=== PATIENT | female | born 1975 | race Caucasian/White ===

== ENCOUNTER 2023-12-08 16:39 | Emergency (ER) | payer OTHER, SELFPAY ==
--- NOTE | ~2023-12-08 | CT_ITS ---
EXAMINATION: CT abdomen pelvis w con DATE: 12/08/2023 18:03 INDICATION: abd pain TECHNIQUE: Computed tomography (CT) of the abdomen and pelvis was performed with 100 mL Omnipaque-350 intravenous contrast. Automated exposure control and iterative reconstruction technique were employe d. The dose-length product was 1021.28 mGy-cm. COMPARISON: None. FINDINGS: Lower thorax: Bilateral basilar atelectasis/scar. Small left pleural effusion. Liver: Enlarged. Biliary/Gallbladder: Distended gallbladder. Gallbladder wall thickening proximally. Large gallstone i n the fundus. Possible 12 mm gallbladder stone at the gallbladder neck. No bile duct dilation. Pancreas: Mild fatty atrophy Spleen: Normal. Adrenals:No mass. Kidneys: No suspicious mass, obstructing stone, or hydronephrosis. GI tract: No small or large bowel dilation. Normal appendix. Mesentery/Peritoneum: Moderate volume simple ascites. Stranding and nodular soft tissue densities in the anterior mesenteric fat. Retroperitoneum: No mass. Atherosclerotic abdominal aortic and/or arterial calcifications. Pelvis: The urinary bladder is mostly empty. Large bulky heterogeneously enhancing uterus. Normal shantel ateral ovaries. Soft Tissues: Soft tissues and body wall unremarkable. Bones: No acute osseous finding. IMPRESSION: Hepatomegaly. Gallbladder hydrops with proximal wall thickening and a potential gallbladder neck stone, correlate f or findings of right upper quadrant pain and with biliary labs. Large, bulky uterus with omental cake and moderate ascites. These findings are concerning for endomet rial, uterine, or other tumor with metastases. Consider MRI of the pelvis and gynecology/gynecology-o ncology referral. Reviewed, dictated and finalized at location K. IMPRESSION: Hepatomegaly. Gallbladder hydrops with proximal wall thickening and a potential gallbladder n luci stone, correlate for findings of right upper quadrant pain and with biliary labs. Large, bulky uterus with omental cake and moderate ascites. These findings are concerning for endometrial, uterine, or other tumor with metastases. Consider M RI of the pelvis and gynecology/gynecology-oncology referral.
[2023-12-08 16:58] VITALS: BP 148/93; PULSE 139; RESP 30; TEMP 37.4; O2SAT 95
--- NOTE | 2023-12-08 17:15 | ED.ABDPAIN ---
HPI - Abdominal Pain General Chief Complaint: Abdominal Pain Stated Complaint: abdominal pain Time Seen by Provider: 12/08/23 16:52 History of Present Illness HPI narrative: 48 YEARS OLD WHITE FEMALE DROVE HERSELF TO THE EMERGENCY ROOM COMPLAINING OF BLOATING, GASSY LIKE FEELING AND ABDOMINAL DISTENTION FOR THE LAST 2 WEEKS FEELING TIGHT ALL OVER THE ABDOMEN. SHE DENIES ANY FEVER, CHILLS, NAUSEA, VOMITING, DIARRHEA, CONSTIPATION. PATIENT REPORTED THAT FEELING GET WORSE WITH EATING, MAYBE BETTER WITH HEATING PAD. LAST MINUTE WITH MINUTES FOR CYCLE 3 WEEKS AGO, PATIENT ON CONTROL, NEVER BEEN , ADOPTED, OBGYN AT [facility]. PATIENT DOES NOT SMOKE OR DRINK OR USE DRUGS, HISTORY OF HYPERLIPIDEMIA DENIED ANY HISTORY OF ABDOMINAL SURGERY Related Data Allergies Allergy/AdvReac Type Severity Reaction Status Date / Time bee venom protein (honey bee) Allergy Hives Verified 12/08/23 17:18 Penicillins Allergy Hives Verified 12/08/23 17:18 Sulfa (Sulfonamide Allergy Hives Verified 12/08/23 17:18 Antibiotics) Review of Systems Review of Systems: All systems reviewed & are unremarkable except as noted in HPI and below Exam Narrative: GENERAL APPEARANCE: WELL-DEVELOPED, WELL-NOURISHED SKIN: NORMAL COLOR HEAD: NORMOCEPHALIC, NONTRAUMATIC EYES: CLEAR CONJUNCTIVA ENT: OROPHARYNX NORMAL, EARS NORMAL, NOSE NORMAL NECK: SUPPLE, NONTENDER CHEST AND RESPIRATORY: AIRWAY PATENT, NO RESPIRATORY DISTRESS, NO ACCESSORY MUSCLE USE HEART: REGULAR RATE/RHYTHM ABDOMEN: SOFT, DISTENDED, QUIET BOWEL SOUNDS, NO ORGANOMEGALY, NO TENDERNESS VASCULAR: NORMAL PERIPHERAL PULSES, NORMAL CAPILLARY REFILL. MUSCULOSKELETAL: NORMAL RANGE OF MOTION, NONTENDER BACK NEUROLOGIC: ALERT AND ORIENTED ?3, APPAREL DESIGNER IS NORMAL TESTED, NO GROSS MOTOR DEFICIT Course Consultations Consultation #1: DR ABARCA Date: 12/08/23 Time: 19:33 Consultation #2: DR HERNANDEZ Date: 12/08/23 Time: 19:33 Vital Signs Vital signs: Vital Signs Temperature 37.4 C 12/08/23 16:58 Pulse Rate 139 H 12/08/23 16:58 Respiratory Rate 30 H 12/08/23 16:58 Blood Pressure 148/93 H 12/08/23 16:58 Pulse Oximetry 95 12/08/23 16:58 Oxygen Delivery Room Air 12/08/23 16:58 Temperature 37.4 C 12/08/23 16:58 Pulse Rate 139 H 12/08/23 16:58 Respiratory Rate 16 12/08/23 17:53 Blood Pressure 138/88 12/08/23 17:53 Pulse Oximetry 95 12/08/23 16:58 Oxygen Delivery Room Air 12/08/23 16:58 MDM - Abdominal Pain MDM Narrative Medical decision making narrative: PATIENT CAME WITH ABDOMINAL TIGHTNESS AND BLOATING FOR THE LAST 2 WEEKS DIFFERENTIAL DIAGNOSIS CONSTIPATION, COLITIS, DIVERTICULITIS, CHOLECYSTITIS, APPENDICITIS, PERFORATION, SMALL-BOWEL OBSTRUCTION VITAL SIGNS ON ARRIVAL SHOWED HEART RATE OF 139 BEATS PER MINUTE, PATIENT IS 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 BLOOD WORKUP SHOWED LEUKOCYTOSIS 13.6 WITH LEFT SHIFT, ALKALINE PHOSPHATASE 136, NORMAL TOTAL BILIRUBIN CT SCAN OF THE ABDOMEN AND PELVIS WITH IV CONTRAST SHOWED CHOLECYSTITIS AND POSSIBLE UTERINE MALIGNANCY/ METASTASIS WITH ASCITES. PATIENT DECLINED TO BE HOSPITALIZE AT THIS TIME IN SPITE OF MY EXTENSIVE EXPLANATION AND WOULD LIKE TO SIGN AMA AND WILL BE BACK IN FEW HOURS. DR. LOPES AND DR. HERNANDEZ WERE NOTIFIED I DECLARE THAT I HAVE PERSONALLY EXPLAINED TO THE PATIENT THE RISKS AND CONSEQUENCES INVOLVED IN LEAVING THIS FACILITY AT THIS TIME. THE BENEFITS OF CONTINUED TREATMENT AND/OR HOSPITALIZATION. AND THE ALTERNATIVES. IF ANY. TO CONTINUED TREATMENT AND/OR HOSPITALIZATION. IF APPLICABLE.I HAVE NOT IDENTIFIED ANY PSYCHOSIS, DRUGS, MENTAL ILLNESS, OR MEDICAL ILLNESS THAT ALTERS DECISION-MAKING C
[2023-12-08 17:26] LABS: Basophils Absolute Auto 0.1 K/mm3 (0.0-0.1); Basophils Percent Auto 0.4 % (0.2-1.2); Eosinophils Absolute Auto 0.2 K/mm3 (0-0.3); Eosinophils Percent Auto 1.2 % (0-4.4); Hematocrit 42.4 % (37.0-47.0); Hemoglobin 14.2 g/dL (12.0-15.0); Immature Granulocyte Absolute 0.04 K/mm3 (0.00-0.031); Immature Granulocyte Percent A 0.3 % (0-0.5); Lymphocytes Absolute Auto 2.26 K/mm3 (0.9-3.2); Lymphocytes Percent Auto 16.6 % (18.3-44.2); Mean Corpuscular HGB Conc 33.5 g/dl (32-36); Mean Corpuscular Hemoglobin 29.3 pg (26-34); Mean Corpuscular Volume 87.4 fl (80-100); Neutrophils Absolute Auto 10.1 K/mm3 (1.3-6.7); Neutrophils Percent Auto 74.5 % (45.5-73.1); Platelet Count Result 717 k/mm3 (150-375); Red Blood Count 4.85 M/mm3 (4.2-5.4); Red Cell Distribution Width 12.8 % (11.5-14.5); White Blood Count 13.6 K/mm3 (4.5-10.0)
[2023-12-08 17:38] LABS: Appearance Urine Clear (Clear); Bacteria Urine None Seen /hpf; Bilirubin Urine Negative (Negative); Blood Urine Trace (Negative); Color Urine Yellow (Yellow); Glucose Urine UA Negative (Negative); Ketones Urine Negative (Negative); Leukocyte Esterase Ur Negative LEU/UL (Negative); Need Manual Microscopic Reviewed; Nitrate Urine Negative (Negative); Non Pathogenic Casts 0-2; Protein Urine Negative (Negative); RBC Urine 0-2 /hpf (0-2); Specific Grav Ur 1.007 (1.001-1.035); Squamous Epithelial Cell Urine Occasional /hpf (Few); Urobilinogen Urine 0.2 mg/dL (<2.0); WBC Urine 0-5 /hpf (0-3); pH Urine 6.5 (5.0-9.0)
[2023-12-08 17:41] LABS: Add Urine Microscopic? YES
[2023-12-08 17:45] LABS: Alanine Aminotransferase 41 U/L (6-35); Albumin Level 4.1 g/dL (3.5-5.1); Alkaline Phosphatase 136 U/L (38-126); Anion Gap 8 mmol/L (4-12); Aspartate Amino Transferase 31 U/L (14-36); Bilirubin,Total 0.8 mg/dL (0.2-1.3); Blood Urea Nitrogen 14 mg/dL (7-17); Calcium 9.6 mg/dL (8.4-10.2); Carbon Dioxide 22 mmol/L (22-30); Chloride 104 mmol/L (98-107); Estimated CRCL calculation 106 ml/min; Estimated Glomerular Filt Rate > 60; Glucose 111 mg/dL (65-110); Lipase 119 U/L (23-300); Potassium 3.8 mmol/L (3.4-5.0); Sodium 134 mmol/L (137-145)
[2023-12-08] MEDS: SODIUM CHLORIDE 0.9% IV 1,000 ML 999 ML IV CONT (17:45)
[2023-12-08 17:53] VITALS: BP 138/88; RESP 16
== END 2023-12-08 19:34 | disposition left against medical advice (07) ==
LOC: ANHED 17:10
PROVIDERS: Emergency Provider Emergency Medicine
DX: K81.0 Acute cholecystitis (principal); C76.3 Malignant neoplasm of pelvis; R16.0 Hepatomegaly, not elsewhere classified
CPT/HCPCS: 36415; 74177; 80053; 81001; 81025; 83690; 85025; 96360; 99284; J7030; Q9967

== ENCOUNTER 2023-12-08 20:23 | Inpatient (IN) | payer OTHER, SELFPAY ==
--- NOTE | ~2023-12-08 | NM_ITS ---
EXAMINATION: NM hepatobiliary wo pharm DATE: 12/11/2023 13:37 INDICATION: Bile leak. COMPARISON: CT abdomen and pelvis 12/08/2023 TECHNIQUE: 4.2 mCi Tc-99m mebrofenin (Choletec) was administered intravenously. Scintigraphic images of the abdomen were obtained for one hour. FINDINGS: There is normal clearance of radiotracer from the blood pool. There is homogeneous tracer u ptake by the liver. Activity progresses to the bowel. IMPRESSION: 1. No bile leak. Reviewed, dictated and finalized at location A. IMPRESSION: 1. No bile leak.
--- NOTE | ~2023-12-08 | CT_ITS ---
EXAMINATION: CT abdomen pelvis wo/w con DATE: 12/15/2023 14:28 INDICATION: Metastatic endometrial carcinoma. TECHNIQUE: Computed tomography (CT) of the abdomen and pelvis was performed without and with 100 mL O mnipaque 350 intravenous contrast. Automated exposure control and iterative reconstruction technique were employed. The dose-length product was 1945.03 mGy-cm. COMPARISON: CT abdomen and pelvis 12/08/23, chest CT 12/13/2023 FINDINGS: The visualized portions of the lung bases demonstrates mild atelectasis. There are small pl eural effusions. The heart size is normal. No pericardial effusion. There is an acute pulmonary embol us in right lower lobe. The liver is normal. There are changes of cholecystectomy. The spleen, pancre as, adrenal glands, and right kidney are normal. There is mild left hydronephrosis and hydroureter. T here is a delayed left-sided contrast nephrogram. There is a 9.1 cm mass in the uterus. There are no dilated loops of bowel. There is a surgical drain in the gallbladder fossa. There is a small volume o f ascites. There is nodular peritoneal thickening. There is fat stranding around the umbilicus, consi stent with inflammation. There are no pathologically enlarged lymph nodes. There is severe lower lumb ar spondylosis. There are chronic bilateral L5 pars defects. There is 10 mm anterolisthesis of L5 on S1. IMPRESSION: 1. Acute pulmonary embolus again seen in right lower lobe. 2. Small pleural effusions. 3. Small volume of ascites. Nodular thickening in the peritoneum, consistent with peritoneal carcinom atosis. 4. 9.1 cm mass in the uterus, which may be a fibroid or primary malignancy. 5. Mild left hydronephrosis and hydroureter Reviewed, dictated and finalized at location E. IMPRESSION: 1. Acute pulmonary embolus again seen in right lower lobe. 2. Small pleural effusions. 3. Small volume of ascites. Nodular thickening in the peritoneum, consistent wi th peritoneal carcinomatosis. 4. 9.1 cm mass in the uterus, which may be a fibroid or primary malignancy. 5. Mild left hydronephrosis and hydroureter
--- NOTE | ~2023-12-08 | US_ITS ---
CORRECTED REPORTS corrected exam description [facility] [place] 12/09/23 This report was recreated on 12/09/23. Original report was EXAMINATION: US pelvic complete DATE: 12/09/2023 08:10 INDICATION: Abnormal CT TECHNIQUE: Multiple transabdominal sonographic images of the pelvis were obtained. COMPARISON: None. FINDINGS: The uterus measures 15.5 x 9.9 x 12.1 cm. The endometrial complex is not clearly visualized likely displaced and distorted due to mass effect from 9.8 x 8.9 x 9.2 cm isoechoic likely uterine fibroid. The bilateral ovaries are not visualized. There is moderate amount of anechoic free fluid in the pelvis. IMPRESSION: 1. 9.8 cm intrauterine mass most likely representing a uterine fibroid. 2. Moderate amount of ascites in the pelvis. Reviewed, dictated and finalized at location B. MTDD
--- NOTE | ~2023-12-08 | US_ITS ---
EXAMINATION: US venous doppler [facility] DATE: 12/13/2023 17:35 INDICATION: Acute pulmonary emboli. TECHNIQUE: Grayscale ultrasound images without and with compression and Doppler ultrasound images of the bilateral lower extremity veins were obtained. COMPARISON: None. FINDINGS: The visualized portions of right common femoral vein, profunda (deep) femoral vein, femoral vein, pop liteal vein, peroneal veins, posterior tibial veins, and greater saphenous vein outflow are patent. The visualized portions of left common femoral vein, profunda femoral vein, femoral vein, popliteal v ein, peroneal veins, posterior tibial veins, and greater saphenous vein outflow are patent. IMPRESSION: 1. No deep venous thrombosis. Reviewed, dictated and finalized at location E.
--- NOTE | ~2023-12-08 | CT_ITS ---
EXAMINATION: CTA chest PE protocol DATE: 12/13/2023 14:40 INDICATION: Tachycardia. TECHNIQUE: Computed tomography angiography (CTA) of the chest was performed with 100 mL Omnipaque-350 intravenous contrast timed to evaluate the pulmonary arteries. Coronal maximum intensity projection 3D-reconstructions were created by the technologist. Automated exposure control and iterative reconst ruction technique were employed. The dose-length product was 747.15 mGy-cm. COMPARISON: CT abdomen and pelvis 12/08/2023 FINDINGS: The lungs demonstrate mild atelectasis. There are small pleural effusions, left worse than right. Cardiomegaly is noted. No pericardial effusion. There are acute pulmonary emboli in the right upper lobe and right lower lobe. There is a surgical drain in the gallbladder fossa. There is a small volume of ascites. There is nodular thickening of the peritoneum. 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 There is a hemangioma in T4 vertebral body. IMPRESSION: 1. Acute pulmonary emboli in right upper lobe and right lower lobe. Sensitivity for additional emboli is decreased by motion artifact. I called this result to Angela Lee. 2. Small pleural effusions. 3. Small volume of ascites. Nodular thickening of the peritoneum suspicious for carcinomatosis. Reviewed, dictated and finalized at location E.
--- NOTE | ~2023-12-08 | XR_ITS ---
EXAMINATION: XR cholangiogram surg 1st inj DATE: 12/09/2023 14:52 INDICATION: Intraoperative evaluation during laparoscopic cholecystectomy TECHNIQUE: Multiple fluoroscopic images of the right upper quadrant were obtained during intraoperati ve cholangiography. A total of 222 fluoroscopic images were obtained. The amount of fluoroscopy time used during this procedure was 0.6 minutes. COMPARISON: None. FINDINGS: Cannulation of the cystic duct demonstrates filling of a normal appearing common bile duct which tapers smoothly distally with no intraluminal filling defects or stricture. Contrast extends i nto the duodenum and central intrahepatic biliary tree which also appears unremarkable. Cholecystecto my clips at the gallbladder fossa. IMPRESSION: 1. No filling defects or strictures within the common bile duct or contrast opacified central biliary tree. Reviewed, dictated and finalized at location B. IMPRESSION: 1. No filling defects or strictures within the common bile duct or contrast opa cified central biliary tree.
[2023-12-08 20:26] VITALS: BP 146/82; PULSE 144; RESP 15; TEMP 37; O2SAT 98
--- NOTE | 2023-12-08 21:22 | ED_ITS ---
HPI - Abdominal Pain General Chief Complaint: Abdominal Pain Stated Complaint: abd pain Time Seen by Provider: 12/08/23 21:22 History of Present Illness HPI narrative: PATIENT CAME TO OUR EMERGENCY ROOM EARLIER TODAY WITH ABDOMINAL PAIN, WORKUP SHOWED FINDINGS CONSISTENT WITH CHOLECYSTITIS AND PELVIC TUMOR. FOR NONSPECIFIC REASON PATIENT DECIDED TO SIGN AMA AND PROMISED TO THE BACK WITHIN 1-2 HOURS. PATIENT DROVE HERSELF BACK TO THE EMERGENCY ROOM 1-1/2 HOUR AFTER SIGNING AMA. SHE DENIES NEW SYMPTOMS COMPARED TO PRIOR TO SIGNING AMA. Related Data Allergies Allergy/AdvReac Type Severity Reaction Status Date / Time bee venom protein (honey bee) Allergy Hives Verified 12/08/23 20:28 Penicillins Allergy Hives Verified 12/08/23 20:28 Sulfa (Sulfonamide Allergy Hives Verified 12/08/23 20:28 Antibiotics) Review of Systems Review of Systems: All systems reviewed & are unremarkable except as noted in HPI and below Exam Narrative: GENERAL APPEARANCE: WELL-DEVELOPED, WELL-NOURISHED SKIN: NORMAL COLOR HEAD: NORMOCEPHALIC, NONTRAUMATIC EYES: CLEAR CONJUNCTIVA ENT: OROPHARYNX NORMAL, EARS NORMAL, NOSE NORMAL NECK: SUPPLE, NONTENDER CHEST AND RESPIRATORY: AIRWAY PATENT, NO RESPIRATORY DISTRESS, NO ACCESSORY MUSCLE USE HEART: REGULAR RATE/RHYTHM ABDOMEN: SOFT, NONTENDER, NO ORGANOMEGALY, QUIET BOWEL SOUNDS , DIFFUSE ABDOMINAL DISTENSION VASCULAR: NORMAL PERIPHERAL PULSES, NORMAL CAPILLARY REFILL. MUSCULOSKELETAL: NORMAL RANGE OF MOTION, NONTENDER BACK NEUROLOGIC: ALERT AND ORIENTED ?3, NIGHT ASSISTANT IS NORMAL TESTED, NO GROSS MOTOR DEFICIT Course Consultations Consultation #1: DR NGUYEN Date: 12/08/23 Time: 21:32 Consultation #2: DR HERNANDEZ Date: 12/08/23 Time: 21:32 Vital Signs Vital signs: Vital Signs Temperature 37.0 C 12/08/23 20:26 Pulse Rate 144 H 12/08/23 20:26 Respiratory Rate 15 12/08/23 20:26 Blood Pressure 146/82 H 12/08/23 20:26 Pulse Oximetry 98 12/08/23 20:26 Oxygen Delivery Room Air 12/08/23 20:26 Temperature 37.0 C 12/08/23 20:26 Pulse Rate 137 H 12/08/23 21:39 Respiratory Rate 20 12/08/23 21:39 Blood Pressure 150/88 H 12/08/23 21:39 Pulse Oximetry 95 12/08/23 21:39 Oxygen Delivery Room Air 12/08/23 20:26 MDM - Abdominal Pain MDM Narrative Medical decision making narrative: PLEASE LOOK AT THE CHART EARLIER TODAY Critical Care Time Critical Care Time Critical Care Time: No Discharge Plan Discharge Clinical Impression: Acute cholecystitis, Pelvic neoplasm, Regular sinus tachycardia Patient Disposition: Still a Patient Condition: Stable Follow-up/Referrals: PHYSICIAN NOT ON STAFF,NONSTAFF [Primary Care Provider] -
[2023-12-08 21:39] VITALS: BP 150/88; PULSE 137; RESP 20; O2SAT 95
--- NOTE | 2023-12-08 21:56 | PM.IMHP ---
H&P: HPI History of Present Illness Date/Time: 12/08/23 21:56 Chief Complaint: abdominal pain Narrative: This is a 48-year-old female with past medical history significant for obesity, patient presents to the emergency room with complaints of 2 weeks of abdominal pain, bloating, distention, constipation, poor per orally intake. denies any fevers, rigors, chills, No vomiting, no hematemesis, no melena, no bright red blood per rectum, no coffee-ground emesis. Preliminary workup was significant for CT of abdomen and pelvis with a gallbladder hydrops and enlarged uterus. patient has been admitted for further evaluation management and treatment. EXAMINATION: CT abdomen pelvis w con DATE: 12/08/2023 18:03 INDICATION: abd pain TECHNIQUE: Computed tomography (CT) of the abdomen and pelvis was performed with 100 mL Omnipaque-350 intravenous contrast. Automated exposure control and iterative reconstruction technique were employed. The dose-length product was 1021.28 mGy-cm. COMPARISON: None. FINDINGS: Lower thorax: Bilateral basilar atelectasis/scar. Small left pleural effusion. Liver: Enlarged. Biliary/Gallbladder: Distended gallbladder. Gallbladder wall thickening proximally. Large gallstone in the fundus. Possible 12 mm gallbladder stone at the gallbladder neck. No bile duct dilation. Pancreas: Mild fatty atrophy Spleen: Normal. Adrenals:No mass. Kidneys: No suspicious mass, obstructing stone, or hydronephrosis. GI tract: No small or large bowel dilation. Normal appendix. Mesentery/Peritoneum: Moderate volume simple ascites. Stranding and nodular soft tissue densities in the anterior mesenteric fat. Retroperitoneum: No mass. Atherosclerotic abdominal aortic and/or arterial calcifications. Pelvis: The urinary bladder is mostly empty. Large bulky heterogeneously enhancing uterus. Normal bilateral ovaries. Soft Tissues: Soft tissues and body wall unremarkable. Bones:? No acute osseous finding. IMPRESSION: Hepatomegaly. Gallbladder hydrops with proximal wall thickening and a potential gallbladder neck stone, correlate for findings of right upper quadrant pain and with biliary labs. Large, bulky uterus with omental cake and moderate ascites. These findings are concerning for endometrial, uterine, or other tumor with metastases. Consider MRI of the pelvis and gynecology/gynecology-oncology referral. Review of Systems Review of Systems: Abdominal distention, bloating, poor appetite, poor per orally intake, constipation. Constitutional: Constitutional: Denies chills, Denies fever(s) and Reports poor appetite Eyes: Eyes: Denies change in vision ENT: Denies dysphagia, Denies nasal congestion, Denies nasal discharge and Denies odynophagia Cardiovascular: Cardiovascular: Denies chest pain, Denies leg edema, Denies radiating jaw, neck or arm pain and Denies palpitations Respiratory: Respiratory: Denies cough and Denies dyspnea Gastrointestinal: Gastrointestinal: Denies melena, Reports bloating, Denies hematochezia, Denies coffee ground emesis, Reports constipation, Denies dyspepsia, Denies heartburn, Denies diarrhea, Denies loose stools, Denies nausea, Denies vomiting and Denies hematemesis Genitourinary: Genitourinary: Denies dysuria Musculoskeletal: Musculoskeletal: Denies arthralgias Integumentary/Breasts: Skin/Breast: Denies rash Neurologic: Denies focal weakness and Denies Sensory deficit (Neuro) Psychiatric: Psychiatric: Reports no additional psychiatric complaints and Reports as per HPI Endocrine: Endocrine: Denies cold intolerance, Denies fatigue, Denies flushing, Denies heat intolerance, Denies polyphagia, Denies polydipsia, Denies polyuria and Denies palpitations Hematologic/Lymphatic: Hematologic/Lymphatic: Reports no additional hematologic/lymphatic complaints and Reports as per HPI Allergic/Immunologic: Allergic/Immunologic: Reports no additional allergic/immunologic complaints and Reports as per HPI PMFS
[2023-12-08] MEDS: ERTAPENEM 1 GM/NS 50 ML 1 GM/50 ML BAG IVPB (22:43)
[2023-12-08 22:55] VITALS: PULSE 132; RESP 17; O2SAT 96
[2023-12-08 23:14] VITALS: BP 141/71; PULSE 132; RESP 17; TEMP 37.1; O2SAT 95; BMI 38.0
--- NOTE | 2023-12-08 23:19 | ADMGEN ---
This patient, Nena Ayala, was admitted to 2 Medical Room 259-01. Patient/family oriented to hospital policies and general routines including ID bracelet, bed and alarms, visiting hours, pain management, procedures, bathroom and other care routines, personal items, smoking policy, room service/diet, and visiting hours. Information on how to activate the Rapid Response Team has been discussed. Patient/Family are encouraged to report perceived risks to care and to ask questions if they do not understand what they are told or what they should do.
[2023-12-08] MEDS: LACTATED RINGERS 1,000 ML 150 ML IV CONT (23:21)
[2023-12-09] VITALS (19 sets, daily range): BP systolic 131–146; BP diastolic 63–94; PULSE 114–131; RESP 14–30; TEMP 36.3–36.9; O2SAT 92–100
[2023-12-09] MEDS: LACTATED RINGERS 1,000 ML 150 ML IV CONT (05:53)
--- NOTE | 2023-12-09 07:20 | WPDCN ---
Assessment and Plan Assessment and plan (1) Uterine mass: Code(s): N85.8 - Other specified noninflammatory disorders of uterus Status: Acute Plan - CT images concerning for primary peritoneal vs ovarian vs uterine vs unknown etiology neoplasm? - CA 125 pending - CHECK PILOT US ordered stat-- ovaries not well visualized; large uterine mass noted - stop OCPs - General surgery is planning to take to OR take, will collect pelvic washing/collecting ascites for cytology with pictures of the pelvis for oncology - I will plan to collecte endometrial sampling via HSC, D&C as well - Risks and benefits discussed in detail HPI Data of Consult Date/Time: 12/09/23 07:20 Requesting Physician: Marco A Campbell MD Primary Care Provider: PHYSICIAN NOT ON STAFF Consult Narrative Narrative: Nena Ayala is a 48 yo G0, LMP (to start tomorrow) who presented to the ER with complaints of abdominal pain/bloating, nausea and decreased PO in take for the last two weeks. CT scan is concerning for hydropic gall bladder and enlarged bulky uterus with omental caking and moderate amount of ascites. She reports her cycles are now regular, but she has been on Nortrel control. She denies having any CHECK PILOT US or endometrial sampling. She reports she has a h/o normal pap smears. She was supposed to be seeing her CHECK PILOT this summer to decrease her control; surveyor geodetic thought she was shadi-menopausal. But her periods prior to the OCPs were heavy heavy. She has never been nor sexually active. Review of Systems Constitutional: Constitutional: Reports anorexia, Reports fatigue and Reports poor appetite Cardiovascular: Cardiovascular: Denies chest pain Respiratory: Respiratory: Denies cough Gastrointestinal: Gastrointestinal: Reports bloating, Reports constipation, Reports early satiety and Reports nausea Genitourinary: Genitourinary: Reports abnormal menses, Reports menorrhagia and Denies pelvic pain PMFSH Past Medical History Medical History Heavy menstrual bleeding Hyperlipidemia Surgical History Surgical History No pertinent past surgical history Family History Family History Other Unknown family medical history Social History Social History Smoking status: Never smoker Alcohol intake: never Substance use: never Do You Feel Safe in your Home?: Yes Lack of Transportation: No Lack of Food: Never True Current Housing: I Have Housing Concerned About Future Housing: No Difficulty Paying Gas/Electric Bills: No Difficulty Paying for Meds: No Currently Unemployed: No Education: Master's Degree or Higher Difficulty w/ Childcare or Family Care: No Spiritual care concerns: No Meds Home Medications and Allergies Home Medications Medication Instructions Recorded Confirmed Type Bifidobacterium infantis 4 mg 4 mg PO DAILY 12/08/23 12/08/23 History capsule (Align) ferrous sulfate 325 mg (65 mg 325 mg PO DAILY 12/08/23 12/08/23 History iron) tablet multivit with minerals-iron 18 1 tablet PO DAILY 12/08/23 12/08/23 History mg-folic ac 400 mcg-vit K 25 mcg tablet (Adults Multivitamin) norethindrone 1 mg-ethinyl 1 tablet PO DAILY 12/08/23 12/08/23 History estradiol 35 mcg tablet (Nortrel) omega-3s 360 je-sfp-opx-fish oil 3 cap PO DAILY 12/08/23 12/08/23 History 1,200 mg-D3 1,000 unit capsule (Fish Oil-Vit D3) simvastatin 80 mg tablet 80 mg PO HS 12/08/23 12/08/23 History Allergies Allergy/AdvReac Type Severity Reaction Status Date / Time bee venom protein (honey bee) Allergy Hives Verified 12/08/23 20:28 Penicillins Allergy Hives Verified 12/08/23 20:28 Sulfa (Sulfonamide Allergy Hives Verified 12/08/23 20:28 Antibiotics) Vital Signs
--- NOTE | 2023-12-09 08:33 | PM.IMPN ---
Progress Note: A&P Assessment and Plan (1) Uterine mass: Code(s): N85.8 - Other specified noninflammatory disorders of uterus Status: Acute Assessment and Plan: - CT abdomen/pelvis:Large, bulky uterus with omental cake and moderate ascites. These findings are concerning for endometrial, uterine, or other tumor with metastases. Consider MRI of the pelvis and gynecology/gynecology-oncology referral. - Pelvic US: 9.8 cm intrauterine mass most likely representing a uterine fibroid. Moderate amount of ascites in the pelvis. - CA 125 pending - General surgery had 25 cc of ascitic fluid was aspirated and sent to pathology for cytology. (2) Cholecystitis: Code(s): K81.9 - Cholecystitis, unspecified Status: Acute Assessment and Plan: - CT abdomen/pelvis: Hepatomegaly.Gallbladder hydrops with proximal wall thickening and a potential gallbladder neck stone, correlate for findings of right upper quadrant pain and with biliary labs. - s/p cholecystectomy with RACHEL placement with Dr. Maurice Time Spent With Patient Time with patient: 25 - 35 minutes Subjective Date/time seen: 12/09/23 08:33 Interval history: 48 year old female with past medical history of presented to the hospital for bloating, abdominal distention, and epigastric pain. Patient was seen in the PACU recovering. Unable to obtain any history due to sedation. Patient s/p cholecystectomy with RACHEL placement. Given the suggestion of pelvic malignancy on previous imaging, approximately 25 cc of ascitic fluid was aspirated and sent to pathology for cytology. Review of Systems Review of Systems: ROS unobtainable: Yes unobtainable due to mental status (Recovering from sedation ) Exam Narrative: AF HR 124 RR 20 SpO2 95 BP 141/88 General: well nourished, well-developed female in no acute respiratory distress who is nontoxic appearing, lying semi recumbent in bed. HEENT: Normocephalic. Atraumatic. No facial asymmetry. Chest: Lungs are clear to auscultation bilaterally. No wheezes or crackles. CV: Heart was regular rate and rhythm. S1-S2. No murmurs, gallops, or rubs. Abd: Abdomen was soft. Ext: No clubbing, cyanosis, or edema. 2+ DP pulses bilaterally. Neuro: Patient is recovering from sedation. Skin: Warm and dry. No rashes noted. RACHEL drain in place with sanguinous fluid. Objective Data Vital Signs Vital Signs: Vital Signs - 24 hr 12/08/23 20:26 12/08/23 21:39 12/08/23 22:55 Temperature 98.6 F Pulse Rate 144 H 137 H 132 H Respiratory Rate 15 20 17 Blood Pressure 146/82 H 150/88 H Pulse Oximetry 98 95 96 Oxygen Delivery Room Air 12/08/23 23:29 12/08/23 23:14 12/09/23 00:00 Temperature 98.7 F Pulse Rate 132 H 126 H Respiratory Rate 17 Blood Pressure 141/71 H Pulse Oximetry 95 Oxygen Delivery Room Air 12/09/23 04:57 12/09/23 04:00 Temperature 98.5 F Pulse Rate 130 H 121 H Respiratory Rate 20 Blood Pressure 136/77 Pulse Oximetry 96 Oxygen Delivery Intake/Output Intake/Output: Intake & Output 12/06/23 12/07/23 12/08/23 12/09/23 23:59 23:59 23:59 23:59 Intake Total 50 1270 Output Total 200 400 Balance -150 870 Meds/Results Medications: Active Medications Generic Name Dose Route Start Last Admin Trade Name Freq PRN Reason Stop Dose Admin Ferrous Sulfate 325 mg 12/09/23 09:00 Ferrous Sulfate [address] PO 01/08/24 08:59 DAILY ALIZE Hydromorphone HCl 0.5 mg 12/08/23 21:23 Hydromorphone Hcl Inj (*Crx) 1 Mg/Ml Syr IV PUSH Q4H PRN Pain Rated 7-10 Lactated Ringer's 1,000 mls @ 150 mls/hr 12/08/23 21:25 12/09/23 07:45 Lr - Lactated Ringers Iv IV CONT 0 mls/hr .Q6H40M ALIZE Infusion Ertapenem 1 gm in 50 mls @ 100 mls/hr 12/09/23 22:00 Invanz 1 Gm/Ns 50 Ml IVPB Q24H [facility] Miscellaneous Information 0 each 12/09/23 00:01 Nortrel Nonform Can Pt Bring From Home? XX 01/08/24 00:00 CLARIFY ALIZE Non-Formulary Medication
--- NOTE | 2023-12-09 09:04 | PM.CNGS ---
Assessment and Plan Assessment and plan (1) Acute cholecystitis: Code(s): K81.0 - Acute cholecystitis Status: Acute Assessment and Plan: Patient with 2 week history of bloating, abdominal distention, and epigastric pain that is aggravated by eating. CT showing a large gallstone in the fundus with gallbladder hydrops and proximal wall thickening, as well as possible gallbladder neck stone, suspicious for cholecystitis. Her symptoms have progressively gotten worse over the past two weeks and she has been unable to tolerate a diet. This could be symptomatic cholelithiasis or atypical presentation of acute cholecystitis. She has no abdominal tenderness on exam. WBC elevated and ALT/alk phos slightly elevated. We discussed nonoperative treatment options with antibiotics/dietary modifications and monitoring, versus proceeding with a laparoscopic cholecystectomy, possible open, under general anesthesia by Dr. Maurice. Description of the procedure, risks, benefits, expected outcomes, and expected recovery were discussed with the patient in detail. We discussed the risks of bile leak and bile duct injury, liver/bowel injury, bleeding, and infection. Also discussed the possibility of having to convert to an open procedure if necessary. She has already essentially failed dietary modifications at home with persistent symptoms, and the patient would like to proceed with surgery. Continue IV Ertapenem, IV fluids, and will schedule to go to the OR today. (2) Endometrial mass: Code(s): N94.89 - Other specified conditions associated with female genital organs and menstrual cycle Status: Acute Assessment and Plan: CT showed large bulky uterus with omental cake and moderate ascites. Pelvic US showed a 9.8 cm intrauterine mass, likely fibroid. OBGYN consulted and recommended aspirating ascites to send for cytology with abdominal washout and pictures of the pelvis, if we plan to take her for a cholecystectomy. Dr. Maurice will discuss with OBGYN before surgery. (3) Regular sinus tachycardia: Code(s): R00.0 - Tachycardia, unspecified Status: Acute Assessment and Plan: HR 120-130's still on telemetry on the floor. Denies history of known tachycardia or arrhythmias. Will order stat EKG preop. She is asymptomatic. Could be related to anxiety? as well as she is very anxious being in a hospital. (4) Obesity (BMI 30-39.9): Code(s): E66.9 - Obesity, unspecified Status: Acute Plan I have discussed the patient's case and plan of care with Dr. Maurice. Thank you for allowing us to see the patient in consultation and we will continue to follow along with you. History of Present Illness Consult details Consult date: 12/09/23 Reason for consult: other (Acute cholecystitis) Requesting physician: Vandana Wilkins MD Narrative: This is a 48-year-old woman with a history of hyperlipidemia and heavy menstrual periods, who presented to the ER yesterday with complaints of bloating x 2 weeks. She reports initially feeling bloated and having intermittent cramping pains in her epigastric area. She denies nausea, vomiting, fever, chills, or diarrhea. She initially thought this was related to gas pains. She had been moving her bowels normally. Her bloating progressively got worse over the next week or so and she started to feel like her upper abdomen is distended. She reports RUQ pain intermittently after eating that would come and go, as well as epigastric pain that she thought was related to gas pains. She tried to change her diet and was eating bland foods, but this was not helping. Her symptoms were so uncomfortable that she was sleeping in a recliner at night because she could not lay flat in bed. Due to her persistent symptoms, she came to the ER. Workup showed CT evidence of gallbladder hydrops, proximal wall thickening and possible gallbladder neck stone. Also noted is a large, bulky uterus with omental cake and moderate ascites, concerning fo
[2023-12-09 09:12] LABS: Hematocrit 40.3 % (37.0-47.0); Hemoglobin 13.2 g/dL (12.0-15.0); Mean Corpuscular HGB Conc 32.8 g/dl (32-36); Mean Corpuscular Volume 88.6 fl (80-100); Mean Platelet Volume 7.8 fl (7.4-10.4); Platelet Count Result 639 k/mm3 (150-375); Red Blood Count 4.55 M/mm3 (4.2-5.4); White Blood Count 11.6 K/mm3 (4.5-10.0)
[2023-12-09 09:22] LABS: Anion Gap 10 mmol/L (4-12); Blood Urea Nitrogen 8 mg/dL (7-17); Calcium 8.9 mg/dL (8.4-10.2); Carbon Dioxide 19 mmol/L (22-30); Chloride 108 mmol/L (98-107); Estimated CRCL calculation 109 ml/min; Estimated Glomerular Filt Rate > 60; Glucose 120 mg/dL (65-110); Potassium 3.6 mmol/L (3.4-5.0); Sodium 137 mmol/L (137-145)
--- NOTE | 2023-12-09 10:02 | WPDHPUPDATE1 ---
History and Physical Update Update Date/Time: 12/09/23 10:02 History and Physical has been reviewed, including an updated exam of the patient. There are NO changes in the patient's condition. Risks, benefits, and alternatives have been discussed and questions answered. Patient agrees to proceed with hysteroscopy with D&C.
--- NOTE | 2023-12-09 10:11 | PC.NURSE ---
To OR via stretcher. Report called to January RN Preop RN.
[2023-12-09 10:18] LABS: Beta HCG Quantitative < 2.39 mIU/ML
--- NOTE | 2023-12-09 10:32 | ECG_ITS ---
Measurements Intervals Erick Rate: 126 P: 28 OR: 128 QRS: 10 QRSD: 134 T: -12 QT: 336 QTc: 411 Interpretive Statements SINUS TACHYCARDIA RIGHT BUNDLE BRANCH BLOCK [120+ ms QRS DURATION, UPRIGHT V1, 40+ ms S IN I/aVL/V4/V5/V6] ANTERIOR MYOCARDIAL INFARCTION, OF INDETERMINATE AGE [40+ ms Q WAVE AND/OR ST/T ABNORMALITY IN V3/V4] ABNORMAL ECG SEE SCANNED COPY FOR SIGNATURE MTDD
--- NOTE | 2023-12-09 10:41 | WPDANESEPPF ---
Anes - Initial Pre Proc Eval Procedure: Operation Date: 12/09/23 10:30 Proposed Procedures p Laparoscopic Cholecystectomy - Ada Maurice MD s Hysteroscopy, Dilatation and Curettage, Laparoscopic Pelvic Washings - Di Meyers MD Date/Time: 12/09/23 10:41 Surgeon: Marco A Campbell MD Pre Op Diagnosis: Cholecystitis,Pelvic Neoplasm Patient Data Age: 48 Gender: F Height: 1.6 m Weight: 97.4 kg Last Vital Signs Temp 36.9 C 12/09/23 04:57 Pulse 131 H 12/09/23 08:00 Resp 20 12/09/23 08:44 BP 136/77 12/09/23 04:57 Pulse Ox 96 12/09/23 08:44 O2 Del Method Room Air 12/09/23 08:44 Allergies Allergy/AdvReac Type Severity Reaction Status Date / Time bee venom protein (honey bee) Allergy Hives Verified 12/08/23 20:28 Penicillins Allergy Hives Verified 12/08/23 20:28 Sulfa (Sulfonamide Allergy Hives Verified 12/08/23 20:28 Antibiotics) Home Medications Medication Instructions Recorded Confirmed Type Bifidobacterium infantis 4 mg 4 mg PO DAILY 12/08/23 12/08/23 History capsule (Align) ferrous sulfate 325 mg (65 mg 325 mg PO DAILY 12/08/23 12/08/23 History iron) tablet multivit with minerals-iron 18 1 tablet PO DAILY 12/08/23 12/08/23 History mg-folic ac 400 mcg-vit K 25 mcg tablet (Adults Multivitamin) norethindrone 1 mg-ethinyl 1 tablet PO DAILY 12/08/23 12/08/23 History estradiol 35 mcg tablet (Nortrel) omega-3s 360 lo-spt-cku-fish oil 3 cap PO DAILY 12/08/23 12/08/23 History 1,200 mg-D3 1,000 unit capsule (Fish Oil-Vit D3) simvastatin 80 mg tablet 80 mg PO HS 12/08/23 12/08/23 History Laboratory Tests 12/08/23 12/09/23 22:29 09:02 WBC 11.6 H K/mm3 (4.5-10.0) RBC 4.55 M/mm3 (4.2-5.4) Hgb 13.2 g/dL (12.0-15.0) Hct 40.3 % (37.0-47.0) MCV 88.6 fl (80-100) MCH 29.0 pg (26-34) MCHC 32.8 g/dl (32-36) RDW 13.0 % (11.5-14.5) Plt Count 639 H k/mm3 (150-375) MPV 7.8 fl (7.4-10.4) Sodium 137 mmol/L (137-145) Potassium 3.6 mmol/L (3.4-5.0) Chloride 108 H mmol/L (98-107) Carbon Dioxide 19 L mmol/L (22-30) Anion Gap 10 mmol/L (4-12) BUN 8 D mg/dL (7-17) Creatinine 0.60 L mg/dL (0.7-1.0) Estim Creat Clear Calc 109 ml/min Estimated GFR > 60 (59 - ) Glucose 120 H mg/dL (65-110) Calcium 8.9 mg/dL (8.4-10.2) CA 125 Antigen Pending TSH 4.930 H uIU/mL (0.465-4.680) Beta HCG, Quant < 2.39 mIU/ML Patient hx anesthesia problems: none Family hx anesthesia problems: none Results Review: All pre-operative results and documents have been reviewed as part of the pre-operative evaluation. [facility] Past Medical History Medical History (Updated 12/09/23 @ 10:42 by Luigi Roa MD) Acute cholecystitis Heavy menstrual bleeding Hyperlipidemia Obesity (BMI 30-39.9) Surgical History Surgical History No pertinent past surgical history Family History Family History Other Unknown family medical history Social History Social History Smoking status: Never smoker Alcohol intake: never Substance use: never Do You Feel Safe in your Home?: Yes Lack of Transportation: No Lack of Food: Never True Current Housing: I Have Housing Concerned About Future Housing: No Difficulty Paying Gas/Electric Bills: No Difficulty Paying for Meds: No Currently Unemployed: No Education: Master's Degree or Higher Difficulty w/ Childcare or Family Care: No Spiritual care concerns: No Anes - Eval Final PreProcedure Day of Procedure 12/09/23 10:41 Patient weight: obese Heart: regular rate and rhythm Lungs: clear to auscultation Airway: Mallampati scale class II Neur
--- NOTE | 2023-12-09 11:01 | WPDHPUPDATE1 ---
History and Physical Update Update Date/Time: 12/09/23 11:01 History and Physical has been reviewed, including an updated exam of the patient. There are NO changes in the patient's condition. Risks, benefits, and alternatives have been discussed and questions answered. Patient agrees to proceed with procedure.
[2023-12-09] MEDS: BUPIVACAINE/EPINEPHRINE 0.5% 30 ML VIAL INFILTRATE (12:14)
--- NOTE | 2023-12-09 15:25 | W.PM.PROC2 ---
Procedure Note - Detailed Date of Procedure 12/09/23 Pre-op Diagnosis acute hydrops cholecystitis, pelvic neoplasm with evidence of metastatic disease Post-op Diagnosis Same Procedure Performed diagnostic laparoscopy, aspiration of ascites for cytology, laparoscopic cholecystectomy with interoperative cholangiogram, repair of common hepatic duct injury x2 Surgeon Ada Maurice MD [employer] Advisor MD [facility] Anesthesia General Indications 48-year-old female presenting to the emergency department complaining of upper abdominal discomfort, poor appetite, bloating. Workup, including imaging, significant for acute hydrops cholecystitis, cholelithiasis, pelvic neoplasm. Findings Pelvic neoplasm with evidence metastatic disease with peritoneal implants, omental caking, large amount of ascites, acute hydrops cholecystitis with very severe inflammation and friability of the gallbladder Description of Procedure The patient was taken the operating room and placed in the supine position. After adequate induction of general anesthesia, the patient was prepped and draped in the normal sterile fashion. A time-out was then done to verify the patient's identity, as well as the procedure being performed. I began by making a 5 mm incision in the infraumbilical region. Through this a Veress needle was placed in the peritoneal cavity and CO2 gas was insufflated. After adequate pneumoperitoneum was achieved, the Veress needle was removed and a 5 mm Optiview trocar was placed under direct visualization. I then placed the laparoscopic through this trocar and under direct visualization placed an additional 12 mm subxiphoid port, as well as 2 additional 5 mm ports in the right abdomen. Upon evaluating the abdominal cavity, there was noted to be a large amount of ascites. Given the suggestion of pelvic malignancy on previous imaging, approximately 25 cc of ascitic fluid was aspirated and sent to pathology for cytology. Dr. Meyers from airport ramp supervisor was present for this portion of the procedure. There was also noted to be omental caking as well as peritoneal implants. A large amount of ascites was suctioned at this point, approximately 4-5 L. In the right upper quadrant, there was a large inflammatory mass. There was noted to be adherent omentum and transverse colon to this area. The omentum did seem like it contained metastatic disease. Using very careful dissection, both bluntly and with the Bovie cautery, I carefully teased this tissue off of the gallbladder. This patient was noted to be very friable and did have some bleeding with dissection. The gallbladder was then identified and noted to be severely distended and inflamed. There was noted to be a very large stone in the gallbladder. This stone seemed to encompass the entirety of the gallbladder. Given the distended nature and inflammation the gallbladder was decompressed and at this point hydrops cholecystitis was noted. I was able to place a grasper gallbladder and this was retracted anterior and cephalad. A 2nd retractor was placed at the infundibulum and retracted laterally. There was severe inflammation and adhesions to the entire gallbladder making dissection very difficult. The area or around the infundibulum was very friable and upon traction some bilious drainage was noted. At this point, I changed the infraumbilical port to a 10 mm port to allow a 30 degree 10 mm scope. Also, I called my partner Dr. Baer to assist with the procedure. Continuing to use very careful dissection around the infundibulum, we were able to identify the area of the traction injury. After a long tedious dissection, it was noted that the injury was likely in the common hepatic duct. The cystic duct was noted to be very short and friable. Using laparoscopic sutures, we were able to closed the traction injuries the common hepatic duct using 3-0 PDS suture. We then completed a interoperative cholangiogram ensuring the anatomy, as well as confirming our r
[2023-12-09] MEDS: LACTATED RINGERS 1,000 ML 30 ML IV CONT ×3 (15:37→16:45)
[2023-12-09] MEDS: fentaNYL CITRATE INJ (*CRX) 100 MCG/2 ML VIAL 25 MCG IV PUSH ×6 (16:13→17:01)
[2023-12-09 16:56] LABS: Hepatitis B Surface Antigen Negative (Negative)
[2023-12-09 17:13] LABS: HIV 1/2 Ab P24 Ag Result Negative (Negative); Hepatitis C Virus Antibody Negative (Negative)
--- NOTE | 2023-12-09 18:34 | PHAR ---
PT'S HOME MED ORAL CONTRACEPTIVE NORTREL NORETHINDRONE/ETHINYL ESTRADIOL TABS VERIFIED BY PHARMACY
[2023-12-09] MEDS: SIMVASTATIN 20 MG TABLET 80 MG PO (20:48)
[2023-12-09] MEDS: HYDROcodone/acetaminophen (*CRX) 5-325 MG TABLET 1 TAB PO (20:52)
[2023-12-09] MEDS: ERTAPENEM 1 GM/NS 50 ML 1 GM/50 ML BAG IVPB (21:47)
[2023-12-10] VITALS (9 sets, daily range): BP systolic 112–120; BP diastolic 63–78; PULSE 100–133; RESP 15–19; TEMP 36.4–37.5; O2SAT 84–94
[2023-12-10] MEDS: HYDROcodone/acetaminophen (*CRX) 5-325 MG TABLET 1 TAB PO ×3 (02:40→20:50)
[2023-12-10 05:10] LABS: Hematocrit 36.5 % (37.0-47.0); Hemoglobin 11.6 g/dL (12.0-15.0); Mean Corpuscular HGB Conc 31.8 g/dl (32-36); Mean Corpuscular Hemoglobin 28.8 pg (26-34); Mean Corpuscular Volume 90.6 fl (80-100); Mean Platelet Volume 7.9 fl (7.4-10.4); Platelet Count Result 549 k/mm3 (150-375); Red Blood Count 4.03 M/mm3 (4.2-5.4); Red Cell Distribution Width 13.2 % (11.5-14.5); White Blood Count 13.6 K/mm3 (4.5-10.0)
[2023-12-10 05:21] LABS: Anion Gap 8 mmol/L (4-12); Blood Urea Nitrogen 8 mg/dL (7-17); Calcium 8.2 mg/dL (8.4-10.2); Carbon Dioxide 21 mmol/L (22-30); Chloride 107 mmol/L (98-107); Estimated CRCL calculation 95 ml/min; Estimated Glomerular Filt Rate > 60; Glucose 149 mg/dL (65-110); Potassium 3.5 mmol/L (3.4-5.0); Sodium 136 mmol/L (137-145)
--- NOTE | 2023-12-10 06:51 | PM.GYNPNOP ---
AMUSEMENT RIDE OPERATOR - A/P Assessment and plan (1) Uterine mass: Code(s): N85.8 - Other specified noninflammatory disorders of uterus Status: Acute (2) Carcinomatosis: Code(s): 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 malignant neoplasm, unspecified Status: Acute Plan - Carcinomatosis noted throughout entire abdomen - AMUSEMENT RIDE OPERATOR US concerning for possible 9x10cm uterine mass vs fibroid - D&C not performed; ascitic fluid collected for cytology-- pending - CA-125-- pending - post-op management per gen surg - SCD's; recommend anti-coagulation Postoperative Procedures: Procedures Operation Date: 12/09/23 10:30 Actual Procedure Side Surgeon p Laparoscopic Cholecystectomy, intraoperative cholangiogram, repair of common hepatic duct Not Applicable Ada Maurice MD Postoperative day: 1 Time Spent With Patient Time: Total time spent is greater than 50% in coordination of care (as documented) at patient's floor/unit and/or counseling patient: Time with patient: less than 15 minutes AMUSEMENT RIDE OPERATOR- PN:Subj Post-Op Subjective Date/time seen: 12/10/23 06:51 Interval history: Patient s/p cholecystectomy with RACHEL placement. Given the suggestion of pelvic malignancy on previous imaging, approximately 25 cc of ascitic fluid was aspirated and sent to pathology for cytology. Hysteroscopy with D&C not performed due to prolonged/complicated procedure and prolonged anesthesia time--- extensive findings of malignancy with carcinomatosis. Pt informed of findings and that the D&C did not occur but that ascitic fluid was sent for cytology. She reports her pain is tolerable. She has tolerated clears overnight. Voiding and passing gas. No fever, chills. Should start her menses at anytime. Review of Systems Constitutional: Constitutional: Reports as per HPI and Denies fever(s) Cardiovascular: Cardiovascular: Denies chest pain Respiratory: Respiratory: Denies dyspnea Gastrointestinal: Gastrointestinal: Reports abdominal pain and Denies bloating Genitourinary: Genitourinary: Denies abnormal vaginal bleeding and Denies pelvic pain AMUSEMENT RIDE OPERATOR - PN: Obj Data Vital Signs Vital Signs: Vital Signs - 24 hr 12/09/23 08:44 12/09/23 08:00 12/09/23 10:20 Temperature 98.2 F Pulse Rate 131 H 130 H Respiratory Rate 20 18 Blood Pressure 142/90 H Pulse Oximetry 96 95 Oxygen Delivery Room Air Room Air Oxygen Flow Rate 12/09/23 15:37 12/09/23 15:45 12/09/23 16:00 Temperature 97.3 F L Pulse Rate 114 H 116 H 126 H Respiratory Rate 29 H 29 H 30 H Blood Pressure 142/84 H 137/94 H 146/90 H Pulse Oximetry 96 100 92 Oxygen Delivery Simple Face Mask Simple Face Mask Room Air Oxygen Flow Rate 8 8 12/09/23 16:15 12/09/23 16:30 12/09/23 16:45 Temperature Pulse Rate 124 H 126 H 126 H Respiratory Rate 26 H 28 H 28 H Blood Pressure 141/88 H 140/90 131/78 Pulse Oximetry 95 95 95 Oxygen Delivery Nasal Cannula Nasal Cannula Nasal Cannula Oxygen Flow Rate 2 2 2 12/09/23 16:59 12/09/23 17:20 12/09/23 17:25 Temperature 98.2 F Pulse Rate 125 H 122 H Respiratory Rate 26 H 16 18 Blood Pressure 142/86 H 140/76 Pulse Oximetry 95 95 95 Oxygen Delivery Nasal Cannula Room Air Oxygen Flow Rate 2 12/09/23 17:45 12/09/23 18:15 12/09/23 20:00 Temperature 98.2 F 98.3 F Pulse Rate 123 H 116 H 123 H Respiratory Rate 16 16 Blood Pressure 140/77 141/77 H Pulse Oximetry 95 95 Oxygen Delivery Oxygen Flow Rate 12/09/23 21:43 12/09/23 20:50 12/10/23 00:00 Temperature 98.4 F 99.5 F Pulse Rate 126 H 129 H Respiratory Rate 14 19 Blood Pressure 131/63 116/63 Pulse Oximetry 94 93 Oxygen Delivery Room Air Oxygen Flow Rate 12/10/23 00:00 12/10/23 04:00 Temperature Pulse Rate 124 H 130 H Respiratory Rate Blood Pressure Pulse Oximetry Oxygen Delivery Oxygen Flow Rate Intake/Output Intake/Output: Intake & Output 12/07/23 12/08/23 12/09/23 12/10/23 23:59 23:59 23:59 23:59 Intake Total 50 1800 Outp
--- NOTE | 2023-12-10 07:54 | WPDANESPN ---
Anes - Prog Note Post-Op Date/Time: 12/10/23 07:54 Cardiovascular status: normal Respiratory status: normal Airway patency: baseline Mental status: baseline Post-Op hydration status: normal Vital Signs: Last Vital Signs Temp 37.5 C 12/10/23 00:00 Pulse 130 H 12/10/23 04:00 Resp 19 12/10/23 00:00 BP 116/63 12/10/23 00:00 Pulse Ox 93 12/10/23 00:00 O2 Del Method Room Air 12/09/23 20:50 O2 Flow Rate 2 12/09/23 16:59 Pain Score (VAS): 10/11 I/O: Intake & Output 12/09/23 12/09/23 12/10/23 15:59 23:59 07:59 Intake Total 180 350 Output Total 660 975 260 Balance -480 -625 -260 Laboratory Tests 12/10/23 04:56 12/10/23 04:56 12/09/23 12/09/23 12/10/23 09:02 15:58 04:56 WBC 11.6 H 13.6 H RBC 4.55 4.03 L Hgb 13.2 11.6 L Hct 40.3 36.5 L MCV 88.6 90.6 MCH 29.0 28.8 MCHC 32.8 31.8 L RDW 13.0 13.2 Plt Count 639 H 549 H MPV 7.8 7.9 Sodium 137 136 L Potassium 3.6 3.5 Chloride 108 H 107 Carbon Dioxide 19 L 21 L Anion Gap 10 8 BUN 8 D 8 Creatinine 0.60 L 0.70 Estim Creat Clear Calc 109 95 Estimated GFR > 60 > 60 Glucose 120 H 149 H Calcium 8.9 8.2 L Beta HCG, Quant < 2.39 Hep Bs Antigen Negative Hepatitis C Ab Screen Negative HIV 1&2 Ab/P24 Ag 4thGn Negative Post-procedural complaints: none Patient Feedback: Patient satisfied with anesthetic care.
--- NOTE | 2023-12-10 12:48 | PM.IMPN ---
Progress Note: A&P Assessment and Plan (1) Uterine mass: Code(s): N85.8 - Other specified noninflammatory disorders of uterus Status: Acute Assessment and Plan: - CT abdomen/pelvis:Large, bulky uterus with omental cake and moderate ascites. These findings are concerning for endometrial, uterine, or other tumor with metastases. Consider MRI of the pelvis and gynecology/gynecology-oncology referral. - Pelvic US: 9.8 cm intrauterine mass most likely representing a uterine fibroid. Moderate amount of ascites in the pelvis. - CA 125 pending - General surgery had 25 cc of ascitic fluid was aspirated and sent to pathology for cytology. - JOURNALISM PROFESSOR consulted (2) Cholecystitis: Code(s): K81.9 - Cholecystitis, unspecified Status: Acute Assessment and Plan: - CT abdomen/pelvis: Hepatomegaly.Gallbladder hydrops with proximal wall thickening and a potential gallbladder neck stone, correlate for findings of right upper quadrant pain and with biliary labs. - s/p cholecystectomy with RACHEL placement with Dr. Maurice - advance diet as tolerated - continue ertapenem Subjective Date/time seen: 12/10/23 12:48 Interval history: Patient sitting up in bed, in no acute distress. Reports her pain is controlled at this time. JOURNALISM PROFESSOR saw her this morning. Gen surgery following post kodi. RACHEL drain in place. Will continue AB therapy. Tolerating full liquids, plan to advance as tolerated. Review of Systems Review of Systems: All systems reviewed & are unremarkable except as noted in HPI and below Exam Narrative: General: well nourished, well-developed female in no acute distress HEENT: Normocephalic. Atraumatic. Chest: Lungs are clear to auscultation bilaterally. No wheezes or crackles. CV: RRR. S1-S2. Abd: Abdomen soft, mild tenderness to RUQ on palpation. BS present. Ext: No clubbing, cyanosis, or edema. Neuro: A&O x3. No focal deficits. Skin: Warm and dry. No rashes noted. RACHEL drain in place with sanguinous fluid. Objective Data Vital Signs Vital Signs: Vital Signs - 24 hr 12/09/23 15:37 12/09/23 15:45 12/09/23 16:00 Temperature 97.3 F L Pulse Rate 114 H 116 H 126 H Respiratory Rate 29 H 29 H 30 H Blood Pressure 142/84 H 137/94 H 146/90 H Pulse Oximetry 96 100 92 Oxygen Delivery Simple Face Mask Simple Face Mask Room Air Oxygen Flow Rate 8 8 12/09/23 16:15 12/09/23 16:30 12/09/23 16:45 Temperature Pulse Rate 124 H 126 H 126 H Respiratory Rate 26 H 28 H 28 H Blood Pressure 141/88 H 140/90 131/78 Pulse Oximetry 95 95 95 Oxygen Delivery Nasal Cannula Nasal Cannula Nasal Cannula Oxygen Flow Rate 2 2 2 12/09/23 16:59 12/09/23 17:20 12/09/23 17:25 Temperature 98.2 F Pulse Rate 125 H 122 H Respiratory Rate 26 H 16 18 Blood Pressure 142/86 H 140/76 Pulse Oximetry 95 95 95 Oxygen Delivery Nasal Cannula Room Air Oxygen Flow Rate 2 12/09/23 17:45 12/09/23 18:15 12/09/23 20:00 Temperature 98.2 F 98.3 F Pulse Rate 123 H 116 H 123 H Respiratory Rate 16 16 Blood Pressure 140/77 141/77 H Pulse Oximetry 95 95 Oxygen Delivery Oxygen Flow Rate 12/09/23 21:43 12/09/23 20:50 12/10/23 00:00 Temperature 98.4 F 99.5 F Pulse Rate 126 H 129 H Respiratory Rate 14 19 Blood Pressure 131/63 116/63 Pulse Oximetry 94 93 Oxygen Delivery Room Air Oxygen Flow Rate 12/10/23 00:00 12/10/23 04:00 12/10/23 08:00 Temperature 98.7 F Pulse Rate 124 H 130 H 100 Respiratory Rate 19 Blood Pressure 120/68 Pulse Oximetry 94 Oxygen Delivery Oxygen Flow Rate 12/10/23 08:35 Temperature Pulse Rate Respiratory Rate Blood Pressure Pulse Oximetry Oxygen Delivery Room Air Oxygen Flow Rate Intake/Output Intake/Output: Intake & Output 12/07/23 12/08/23 12/09/23 12/10/23 23:59 23:59 23:59 23:59 Intake Total 50 1800 420 Output Total 200 2035 260 Balance -150 -235 160 Meds/Results Medications: Active Medications Generic Name D
[2023-12-10] MEDS: ENOXAPARIN 40 MG/0.4 ML SYRINGE SUB-Q (14:14)
--- NOTE | 2023-12-10 14:27 | PM.PNGS ---
Progress Note: A&P Assessment and Plan (1) Cholecystitis: Code(s): K81.9 - Cholecystitis, unspecified Status: Acute Assessment and Plan: stable, await path, drain c some bilious tinge, will cont drain and abx, routine postop care Subjective Subjective Date/Time Seen: 12/10/23 14:27 Interval history: feels much better this am, some incisional soreness Review of Systems Review of Systems: All systems reviewed & are unremarkable except as noted in HPI and below Exam Const: General: cooperative, comfortable and no acute distress Resp: Auscultation: clear to auscultation bilaterally Cardio: Rate: regular rate Rhythm: regular rhythm GI: Inspection: normal to inspection, distended and incision GI Palp: Yes abdominal tenderness, Yes Soft to palpation and Yes Tenderness to palpation present (GI) Objective Data Vital Signs Vital Signs: Vital Signs - 24 hr 12/09/23 15:37 12/09/23 15:45 12/09/23 16:00 Temperature 36.3 C L Pulse Rate 114 H 116 H 126 H Respiratory Rate 29 H 29 H 30 H Blood Pressure 142/84 H 137/94 H 146/90 H Pulse Oximetry 96 100 92 Oxygen Delivery Simple Face Mask Simple Face Mask Room Air Oxygen Flow Rate 8 8 12/09/23 16:15 12/09/23 16:30 12/09/23 16:45 Temperature Pulse Rate 124 H 126 H 126 H Respiratory Rate 26 H 28 H 28 H Blood Pressure 141/88 H 140/90 131/78 Pulse Oximetry 95 95 95 Oxygen Delivery Nasal Cannula Nasal Cannula Nasal Cannula Oxygen Flow Rate 2 2 2 12/09/23 16:59 12/09/23 17:20 12/09/23 17:25 Temperature 36.8 C Pulse Rate 125 H 122 H Respiratory Rate 26 H 16 18 Blood Pressure 142/86 H 140/76 Pulse Oximetry 95 95 95 Oxygen Delivery Nasal Cannula Room Air Oxygen Flow Rate 2 12/09/23 17:45 12/09/23 18:15 12/09/23 20:00 Temperature 36.8 C 36.8 C Pulse Rate 123 H 116 H 123 H Respiratory Rate 16 16 Blood Pressure 140/77 141/77 H Pulse Oximetry 95 95 Oxygen Delivery Oxygen Flow Rate 12/09/23 21:43 12/09/23 20:50 12/10/23 00:00 Temperature 36.9 C 37.5 C Pulse Rate 126 H 129 H Respiratory Rate 14 19 Blood Pressure 131/63 116/63 Pulse Oximetry 94 93 Oxygen Delivery Room Air Oxygen Flow Rate 12/10/23 00:00 12/10/23 04:00 12/10/23 08:00 Temperature 37.1 C Pulse Rate 124 H 130 H 100 Respiratory Rate 19 Blood Pressure 120/68 Pulse Oximetry 94 Oxygen Delivery Oxygen Flow Rate 12/10/23 08:35 Temperature Pulse Rate Respiratory Rate Blood Pressure Pulse Oximetry Oxygen Delivery Room Air Oxygen Flow Rate Intake/Output Intake/Output: Intake & Output 12/07/23 12/08/23 12/09/23 12/10/23 23:59 23:59 23:59 23:59 Intake Total 50 1800 660 Output Total 200 2035 260 Balance -150 -235 400 Meds/Results Medications: Active Medications Generic Name Dose Route Start Last Admin Trade Name Freq PRN Reason Stop Dose Admin Hydrocodone Bitart/Acetaminophen 1 tab 12/09/23 15:22 12/10/23 12:10 Hydrocodone/Acetaminophen (*Crx) 5-325 Mg Tablet PO 1 tab Q4H PRN Administration Pain Rated 4-6 Enoxaparin Sodium 40 mg 12/10/23 13:00 12/10/23 14:14 Enoxaparin 40 Mg/0.4 Ml Syringe SUB-Q 40 mg DAILY ALIZE Administration Ferrous Sulfate 325 mg 12/09/23 09:00 12/10/23 08:44 Ferrous Sulfate [address] PO 01/08/24 08:59 Not Given DAILY ALIZE Hydromorphone HCl 0.5 mg 12/08/23 21:23 Hydromorphone Hcl Inj (*Crx) 1 Mg/Ml Syr IV PUSH Q4H PRN Pain Rated 7-10 Ertapenem 1 gm in 50 mls @ 100 mls/hr 12/09/23 22:00 12/09/23 22:17 Invanz 1 Gm/Ns 50 Ml IVPB Infused Q24H ALIZE Infusion Non-Formulary ( 1 each 12/09/23 18:40 12/10/23 08:44 Norethindrone- PO 01/08/24 18:39 Not Given Ethinyl Estradiol 1 DAILY ALIZE Mg-35 Mcg Oral Tablet) Ondansetron HCl 4 mg 12/08/23 21:23 Ondansetron Inj 4 Mg/2 Ml Vial IV PUSH Q4H PRN Nausea Simvastatin 80 mg 12/09/23 21:00 12/09/23 20:48 Simvastatin 20 Mg Table
[2023-12-10] MEDS: SIMVASTATIN 20 MG TABLET 80 MG PO (20:51)
[2023-12-10] MEDS: ERTAPENEM 1 GM/NS 50 ML 1 GM/50 ML BAG IVPB (20:58)
[2023-12-11] VITALS (13 sets, daily range): BP systolic 110–118; BP diastolic 62–82; PULSE 98–139; RESP 16–18; TEMP 36.6–37; O2SAT 91–94
--- NOTE | 2023-12-11 | ECHO_ITS ---
Patient Info Name: Nena Ayala Age: 48 years : 1975 Gender: Female Ht: 63 in Wt: 214 lbs BSA: 2.13 m2 HR: 127 bpm BP: 110 / 72 mmHg Technical Quality: Fair Exam Date: 12/11/2023 3:40 PM Exam Location: Echo Lab Exam Room: 259 Patient Status: Inpatient Admit Date: 12/09/2023 Staff Ordering Physician: Meaghan Gustafson APRN Laydown Machine Operator: Iliana Tellez RDCS Attending Provider: Marco A Campbell MD Exam Type: CA echo dop color flow w con Study Info Indications - tachycardia abnormal ekg Complete two-dimensional, color flow and Doppler transthoracic echocardiogram is performed with contrast to opacify the left ventricle and to improve the deliniation of the left ventricle endocardial borders. Contrast/Agitated Saline Contrast/Ag. Saline: Definity Amount: 2.00 ml Administered By: Iliana Tellez [facility] Existing IV Access: Yes IV Access Condition: patent with no signs of infiltration Summary 1. Definity contrast administered improved wall motion interpretation. 2. Left ventricular chamber dimension is normal. 3. Left ventricular systolic function is normal, estimated at 65-70%. 4. The left ventricular diastolic function is grade I diastolic dysfunction. 5. No pulmonary hypertension, estimated pulmonary arterial systolic pressure is 30 mmHg. 6. There is trivial pericardial effusion. 7. Pleural effusion noted. Left Ventricle Definity contrast administered improved wall motion interpretation. Tissue doppler is not performed. Left ventricular chamber dimension is normal. Left ventricular systolic function is normal, estimated at 65-70%. The left ventricular diastolic function is grade I diastolic dysfunction. Right Ventricle Right ventricular chamber dimension is normal. Right ventricular systolic function is normal. Left Atria Left atrial chamber dimension is normal. Right Atria Right atrial chamber dimension is normal. Aortic Valve The aortic valve is trileaflet. There is no aortic valve stenosis. There is no aortic valve regurgitation. Pulmonic Valve There is no pulmonic regurgitation. Mitral Valve There is no mitral valve stenosis. There is no mitral valve regurgitation. Tricuspid Valve There is no tricuspid valve regurgitation. No pulmonary hypertension, estimated pulmonary arterial systolic pressure is 30 mmHg. Pericardium/Pleural There is trivial pericardial effusion. Pleural effusion noted. Inferior Vena Cava Normal inferior vena cava with >50% collapse upon inspiration consistent with normal right atrial pressure, 5 mmHg. Aorta The aortic root size at the sinus of Valsalva is normal. Left Ventricular Outflow Tract Name Value Normal LVOT 2D LVOT Diameter 2.07 cm LVOT Doppler LVOT Peak Gradient 5 mmHg LVOT Mean Gradient 3 mmHg LVOT VTI 15.61 cm LVOT VTI/AV VTI Ratio 1.09 LVOT Stroke Volume 52.24 ml LVOT CO 15.25 l/min LVOT CI 7.18 L/min/m2 Pulmonic Valve
--- NOTE | 2023-12-11 00:33 | ECG_ITS ---
Measurements Intervals [place] Rate: 133 P: 24 W[place]: 121 QRS: 29 QRSD: 126 T: -8 QT: 300 QTc: 378 Interpretive Statements SINUS TACHYCARDIA RIGHT BUNDLE BRANCH BLOCK [120+ ms QRS DURATION, UPRIGHT V1, 40+ ms S IN I/aVL/V4/V5/V6] MODERATE T-WAVE ABNORMALITY, CONSIDER LATERAL ISCHEMIA [-0.1+ mV T WAVE IN I/aVL/V5/V6] ABNORMAL ECG SEE SCANNED COPY FOR SIGNATURE MTDD
[2023-12-11] MEDS: dilTIAZem HCl INJ 25 MG/5 ML VIAL 10 MG IV PUSH (00:56)
[2023-12-11] MEDS: MAG HYDROX/AL HYDROX/SIMETH 30 ML UDC PO (01:28)
[2023-12-11 06:28] LABS: Basophils Percent Auto 0.1 % (0.2-1.2); Eosinophils Percent Auto 0.1 % (0-4.4); Hematocrit 41.9 % (37.0-47.0); Hemoglobin 13.5 g/dL (12.0-15.0); Immature Granulocyte Absolute 0.06 K/mm3 (0.00-0.031); Immature Granulocyte Percent A 0.4 % (0-0.5); Lymphocytes Absolute Auto 1.13 K/mm3 (0.9-3.2); Lymphocytes Percent Auto 7.6 % (18.3-44.2); Mean Corpuscular HGB Conc 32.2 g/dl (32-36); Mean Corpuscular Hemoglobin 29.1 pg (26-34); Mean Corpuscular Volume 90.3 fl (80-100); Mean Platelet Volume 8.2 fl (7.4-10.4); Monocytes Absolute Auto 0.7 K/mm3 (0.1-0.6); Monocytes Percent Auto 4.5 % (2.6-8.5); Neutrophils Absolute Auto 12.9 K/mm3 (1.3-6.7); Neutrophils Percent Auto 87.3 % (45.5-73.1); Platelet Count Result 625 k/mm3 (150-375); Red Blood Count 4.64 M/mm3 (4.2-5.4); Red Cell Distribution Width 13.2 % (11.5-14.5); White Blood Count 14.8 K/mm3 (4.5-10.0)
[2023-12-11 06:50] LABS: Anion Gap 8 mmol/L (4-12); Blood Urea Nitrogen 10 mg/dL (7-17); Calcium 8.5 mg/dL (8.4-10.2); Carbon Dioxide 24 mmol/L (22-30); Chloride 103 mmol/L (98-107); Estimated CRCL calculation 95 ml/min; Estimated Glomerular Filt Rate > 60; Glucose 174 mg/dL (65-110); Potassium 3.5 mmol/L (3.4-5.0); Sodium 135 mmol/L (137-145)
--- NOTE | 2023-12-11 07:18 | PM.OBPNVD ---
OB - PN: Subj Subjective Date/time seen: 12/11/23 07:18 Interval history: Patient sitting up in bed, in no acute distress. Reports her pain is controlled at this time. Gen surgery following post cholecystectomy. RACHEL drain in place, on Abx. Tolerated regular diet, but then had large volume emesis. Voiding. Has only passed small amount of flatus, no BM. Feeling dehydrated/fast heart rate. No fever, chills. Should start her menses at anytime. OB - PN: Obj Data Labs 12/11/23 05:56 12/11/23 05:56 Labs: Laboratory Results - last 24 hr 12/10/23 12/11/23 04:54 05:56 WBC 14.8 H RBC 4.64 Hgb 13.5 Hct 41.9 MCV 90.3 MCH 29.1 MCHC 32.2 RDW 13.2 Plt Count 625 H MPV 8.2 Immature Gran % (Auto) 0.4 Neut % (Auto) 87.3 H Lymph % (Auto) 7.6 L [place] % (Auto) 4.5 Eos % (Auto) 0.1 Baso % (Auto) 0.1 L Lymph # (Auto) 1.13 [place] # (Auto) 0.7 H Eos # (Auto) 0.0 Baso # (Auto) 0.0 Abs Immat Gran (auto) 0.06 H Absolute Neuts (auto) 12.9 H Absolute Nucleated RBC 0.000 Nucleated RBC % 0.0 Sodium 135 L Potassium 3.5 Chloride 103 Carbon Dioxide 24 Anion Gap 8 BUN 10 Creatinine 0.70 Estim Creat Clear Calc 95 Estimated GFR > 60 Glucose 174 H Calcium 8.5 Thyroxine (T4) 14.50 H OB - PN A/P Assessment and Plan (1) Uterine mass: Code(s): N85.8 - Other specified noninflammatory disorders of uterus Status: Acute (2) Carcinomatosis: Code(s): 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 malignant neoplasm, unspecified Status: Acute Plan - CT scan with omental caking and significant ascites, SHIP MATE US showing 9x10cm uterine mass - Carcinomatosis noted throughout entire abdomen during lap kodi - D&C not performed; ascitic fluid collected for cytology-- pending - CA-125-- pending - post-op management per gen surg - SCD's; continue anti-coagulation, ambulation encouraged - Recommend bowel regimen of miralax if tolerating PO; if continuing to have emesis, would recommend bowel series to rule out SBO as she is high risk due to the carcinomatosis - Zofran PRN, pepcid IV recommended - Tachycardia--- consider gentle IV fluid hydration as she has minimal PO intake vs thyroid US/work up vs cardiac w/u-- hospitalist to manage - Daily labs -- recommend magnesium, LFTs with tomorrows labs Time Spent With Patient Time: Total time spent is greater than 50% in coordination of care (as documented) at patient's floor/unit and/or counseling patient: Review of Systems Constitutional: Constitutional: Reports as per HPI, Denies fever(s) and Reports poor appetite Cardiovascular: Cardiovascular: Denies chest pain, Reports rapid heart rate and Denies dyspnea Respiratory: Respiratory: Denies dyspnea Gastrointestinal: Gastrointestinal: Reports abdominal pain, Denies bloating, Reports constipation, Reports early satiety, Denies nausea and Reports vomiting Genitourinary: Genitourinary: Denies abnormal vaginal bleeding and Denies pelvic pain Neurologic: Denies dizziness and Denies headache(s) Exam Const: General: cooperative, comfortable, no acute distress and obese Nutritional Appearance: obese Orientation/consciousness: patient oriented x3 Resp: Effort & Inspection: normal respiratory effort Auscultation: clear to auscultation bilaterally Cardio: Rate: tachycardic GI: Inspection: incision (healing w/o signs of infection) Auscultation: Hypoactive bowel sounds present Other: RACHEL drain in place Neuro: General: patient oriented x3 Extrem: General: normal to inspection
[2023-12-11] MEDS: ENOXAPARIN 40 MG/0.4 ML SYRINGE SUB-Q (08:56)
--- NOTE | 2023-12-11 09:05 | PM.PNGS ---
Progress Note: A&P Assessment and Plan (1) Cholecystitis: Code(s): K81.9 - Cholecystitis, unspecified Status: Acute Assessment and Plan: will get HIDA for further eval of biliary tree, consult GI for likely ERCP (2) Pelvic neoplasm: Code(s): D49.89 - Neoplasm of unspecified behavior of other specified sites Status: Acute Assessment and Plan: ASSISTANT TO THE DIRECTOR following, await path Subjective Subjective Date/Time Seen: 12/11/23 09:05 Interval history: feels ok, some emesis this am Review of Systems Review of Systems: All systems reviewed & are unremarkable except as noted in HPI and below Exam Const: General: cooperative, comfortable and no acute distress Resp: Auscultation: clear to auscultation bilaterally Cardio: Rate: tachycardic Rhythm: regular rhythm GI: Inspection: normal to inspection and incision GI Palp: Yes abdominal tenderness, Yes Soft to palpation and Yes Tenderness to palpation present (GI) Other: RACHEL c s/s, some bilious tinge Objective Data Vital Signs Vital Signs: Vital Signs - 24 hr 12/10/23 14:15 12/10/23 14:17 12/10/23 16:00 Temperature 36.6 C Pulse Rate 129 H Respiratory Rate 15 Blood Pressure 112/67 Pulse Oximetry 84 L 90 91 Oxygen Delivery Room Air Nasal Cannula Oxygen Flow Rate 1 Fraction of Inspired Oxygen 12/10/23 12:00 12/10/23 16:00 12/10/23 20:00 Temperature Pulse Rate 124 H 133 H Respiratory Rate Blood Pressure Pulse Oximetry 91 Oxygen Delivery Nasal Cannula Oxygen Flow Rate 1 Fraction of Inspired Oxygen 12/10/23 21:49 12/11/23 00:42 12/11/23 00:30 Temperature 36.4 C 36.9 C Pulse Rate 133 H 131 H Respiratory Rate 18 18 Blood Pressure 116/78 117/73 Pulse Oximetry 94 94 93 Oxygen Delivery Nasal Cannula Oxygen Flow Rate 1 Fraction of Inspired Oxygen 12/10/23 20:00 12/11/23 00:00 12/11/23 04:00 Temperature Pulse Rate 127 H 133 H 139 H Respiratory Rate Blood Pressure Pulse Oximetry Oxygen Delivery Oxygen Flow Rate Fraction of Inspired Oxygen 12/11/23 07:11 12/11/23 08:35 Temperature 37.0 C Pulse Rate 133 H Respiratory Rate 18 Blood Pressure 110/72 Pulse Oximetry 93 91 Oxygen Delivery Room Air Oxygen Flow Rate Fraction of Inspired Oxygen 21 Intake/Output Intake/Output: Intake & Output 12/08/23 12/09/23 12/10/23 12/11/23 23:59 23:59 23:59 23:59 Intake Total 50 1800 1500 200 Output Total 200 2035 710 680 Balance -150 -235 790 -480 Meds/Results Medications: Active Medications Generic Name Dose Route Start Last Admin Trade Name Freq PRN Reason Stop Dose Admin Hydrocodone Bitart/Acetaminophen 1 tab 12/09/23 15:22 12/10/23 20:50 Hydrocodone/Acetaminophen (*Crx) 5-325 Mg Tablet PO 1 tab Q4H PRN Administration Pain Rated 4-6 Al Hydrox/Mg Hydrox/Simethicone 30 ml 12/11/23 01:18 12/11/23 01:28 Mag Hydrox/Al Hydrox/Simeth 30 Ml Udc PO 30 ml Q6H PRN Administration Indigestion Enoxaparin Sodium 40 mg 12/10/23 13:00 12/11/23 08:56 Enoxaparin 40 Mg/0.4 Ml Syringe SUB-Q 40 mg DAILY ALIZE Administration Ferrous Sulfate 325 mg 12/09/23 09:00 12/11/23 08:57 Ferrous Sulfate [address] PO 01/08/24 08:59 Not Given DAILY ALIZE Hydromorphone HCl 0.5 mg 12/08/23 21:23 Hydromorphone Hcl Inj (*Crx) 1 Mg/Ml Syr IV PUSH Q4H PRN Pain Rated 7-10 Ertapenem 1 gm in 50 mls @ 100 mls/hr 12/09/23 22:00 12/11/23 00:28 Invanz 1 Gm/Ns 50 Ml IVPB Infused Q24H ALIZE Infusion Non-Formulary ( 1 each 12/09/23 18:40 12/11/23 08:57 Norethindrone- PO 01/08/24 18:39 Not Given Ethinyl Estradiol 1 DAILY ALIZE Mg-35 Mcg Oral Tablet) Ondansetron HCl 4 mg 12/08/23 21:23 Ondansetron Inj 4 Mg/2 Ml Vial IV PUSH Q4H PRN Nausea Simvastatin 80 mg 12/09/23 21:00 12/10/23 20:51 Simvastatin 20 Mg Tablet PO 80 mg HS ALIZE Administration Radiolo
[2023-12-11 09:30] LABS: Alanine Aminotransferase 68 U/L (6-35); Albumin Level 3.3 g/dL (3.5-5.1); Alkaline Phosphatase 85 U/L (38-126); Aspartate Amino Transferase 36 U/L (14-36); Bilirubin,Total 0.7 mg/dL (0.2-1.3)
[2023-12-11] MEDS: METOPROLOL TARTRATE INJ 5 MG/5 ML VIAL IV PUSH (09:47)
[2023-12-11] MEDS: SODIUM CHLORIDE 0.9% IV 1,000 ML 100 ML IV CONT ×2 (09:47→21:00)
[2023-12-11] MEDS: PANTOPRAZOLE SODIUM IV 40 MG VIAL IV PUSH (11:56)
--- NOTE | 2023-12-11 14:15 | PM.IMPN ---
Progress Note: A&P Assessment and Plan (1) Uterine mass: Code(s): N85.8 - Other specified noninflammatory disorders of uterus Status: Acute Assessment and Plan: - CT abdomen/pelvis:Large, bulky uterus with omental cake and moderate ascites. These findings are concerning for endometrial, uterine, or other tumor with metastases. Consider MRI of the pelvis and gynecology/gynecology-oncology referral. - Pelvic US: 9.8 cm intrauterine mass most likely representing a uterine fibroid. Moderate amount of ascites in the pelvis. - CA 125 pending - General surgery had 25 cc of ascitic fluid was aspirated and sent to pathology for cytology. - COMMUNITY SERVICE SPECIALIST following (2) Cholecystitis: Code(s): K81.9 - Cholecystitis, unspecified Status: Acute Assessment and Plan: - CT abdomen/pelvis: Hepatomegaly.Gallbladder hydrops with proximal wall thickening and a potential gallbladder neck stone, correlate for findings of right upper quadrant pain and with biliary labs. - s/p cholecystectomy with RACHEL placement with Dr. Maurice - advance diet as tolerated - continue ertapenem - GI consulted, HIDA scan showed no bile leak - start on PPI (3) Regular sinus tachycardia: Code(s): R00.0 - Tachycardia, unspecified Status: Acute Assessment and Plan: patient on tele sinus tach EKG shows possible ID of unknown age patient otherwise asymptomatic TSH/T4 elevated but could be related to hormonal disturbance and ovarian mass no history or exam findings consistent with hyperthyroid, may need outpatient re-evaluation will give PO metoprolol this afternoon ECHO ordered Subjective Date/time seen: 12/11/23 14:15 Interval history: Patient sitting up in bed, in no acute distress. Denies pain at this time. Denies GI upset prior or after her episode of vomiting this morning. Gen surgery following post cholecystectomy. RACHEL drain in place, will continue AB. Patient remains tachycardic, will give another dose of metoprolol PO and order ECHO given abnormal EKG. GI consulted and evaluating with HIDA to rule out bile leak. COMMUNITY SERVICE SPECIALIST following. Review of Systems Review of Systems: All systems reviewed & are unremarkable except as noted in HPI and below Exam Narrative: General: well nourished, well-developed female in no acute distress HEENT: Normocephalic. Atraumatic. Chest: Lungs are clear to auscultation bilaterally. No wheezes or crackles. CV: RRR. S1-S2. Abd: Abdomen soft, mild tenderness to RUQ on palpation. BS present. Ext: No clubbing, cyanosis, or edema. Neuro: A&O x3. No focal deficits. Skin: Warm and dry. No rashes noted. RACHEL drain in place with sanguinous fluid. PSYCH: Normal mood and affect. Objective Data Vital Signs Vital Signs: Vital Signs - 24 hr 12/10/23 14:17 12/10/23 16:00 12/10/23 16:00 Temperature 98 F Pulse Rate 129 H 133 H Respiratory Rate 15 Blood Pressure 112/67 Pulse Oximetry 90 91 Oxygen Delivery Nasal Cannula Oxygen Flow Rate 1 Fraction of Inspired Oxygen 12/10/23 20:00 12/10/23 21:49 12/11/23 00:42 Temperature 97.6 F Pulse Rate 133 H Respiratory Rate 18 Blood Pressure 116/78 Pulse Oximetry 91 94 94 Oxygen Delivery Nasal Cannula Nasal Cannula Oxygen Flow Rate 1 1 Fraction of Inspired Oxygen 12/11/23 00:30 12/10/23 20:00 12/11/23 00:00 Temperature 98.4 F Pulse Rate 131 H 127 H 133 H Respiratory Rate 18 Blood Pressure 117/73 Pulse Oximetry 93 Oxygen Delivery Oxygen Flow Rate Fraction of Inspired Oxygen 12/11/23 04:00 12/11/23 07:11 12/11/23 08:35 Temperature 98.6 F Pulse Rate 139 H 133 H Respiratory Rate 18 Blood Pressure 110/72 Pulse Oximetry 93 91 Oxygen Delivery Room Air Oxygen Flow Rate Fraction of Inspired Oxygen 12/11/23 09:47 Temperature Pulse Rate 130 H Respiratory Rate Blood Pressure Pulse Oximetry Oxygen Delivery Oxygen Flow Rate Fraction of Inspired Oxygen
--- NOTE | 2023-12-11 14:16 | PCCARD ---
EKG ORDERED AT 22:02 12/08/23 WAS CHARTED IN PATIENT'S EMR DONE - UNABLE TO LOCATE EKG IN THE PATIENT'S CHART, HAD TO CANCEL EKG ORDER
[2023-12-11] MEDS: METOPROLOL TARTRATE 25 MG TABLET PO (15:12)
[2023-12-11] MEDS: PERFLUTREN LIPID MICROSPHERES 1.5 ML VIAL DILUTED TO 10 ML TOTAL VOLUME IV PUSH (16:05)
--- NOTE | 2023-12-11 16:41 | WPDGICN ---
Assessment and Plan Assessment and plan (1) Peritoneal carcinomatosis: Code(s): C78.6 - Secondary malignant neoplasm of retroperitoneum and peritoneum Status: Acute Assessment and Plan: unfortunately malignant ascites with peritoneal carcinomatosis, primary probably pelvic mass- gynecology on board she has RACHEL drain with + drainage probably from ascites, HIDA scan negative for bile leak (during surgery had minimal leak from traction injury but it was closed at the common hepatic duct using 3-0 PDS suture, then completed a interoperative cholangiogram ensuring the anatomy, as well as confirming the repair), furthermore hida scan today without leak. we will monitor closely, if anything changes we can always do ercp with sphincterotomy with stenting of bile duct as needed.? (2) Uterine mass: Code(s): N85.8 - Other specified noninflammatory disorders of uterus Status: Acute Assessment and Plan: by gynecology, will need also oncology (3) Pelvic neoplasm: Code(s): D49.89 - Neoplasm of unspecified behavior of other specified sites Status: Acute (4) Cholecystitis: Code(s): K81.9 - Cholecystitis, unspecified Status: Acute Assessment and Plan: s/p cholecystectomy (5) Bile leak: Code(s): K83.9 - Disease of biliary tract, unspecified Status: Acute Assessment and Plan: already repaired GI Consult Note Consult date/time: 12/11/23 16:41 Reason for consult: possible bile leak, cholecystitis HPI: Nena Ayala is a 48 year old female with a history of hyperlipidemia and heavy menstrual periods, who presented to the ER few days ago with bloating for 2 weeks and intermittent abdominal pain. CT evidence of gallbladder hydrops, proximal wall thickening and possible gallbladder neck stone. Also noted is a large, bulky uterus with omental cake and moderate ascites, concerning for endometrial, uterine, or other tumor metastases. Labs showed a WBC count of 13,000, platelets 717,000, total bilirubin 0.8, AST 31, ALT 41, and alk phos 136. Lipase normal. Surgery evaluated patient and 12/08 had cholecystectomy, found pelvic neoplasm with evidence metastatic disease with peritoneal implants, omental caking, large amount of ascites, acute hydrops cholecystitis with very severe inflammation and friability of the gallbladder, underwent diagnostic laparoscopy, aspiration of ascites for cytology, laparoscopic cholecystectomy with interoperative cholangiogram, repair of common hepatic duct injury x2- it was a difficult surgery. RACHEL drain in place and noted drainage. HIDA scan just completed and no signs of bile leak. She is comfortable now. Review of Systems Constitutional: Constitutional: Denies chills Eyes: Eyes: Denies blurry vision ENT: Reports Normal hearing present, Denies headache(s) and Denies neck pain Cardiovascular: Cardiovascular: Denies chest pain and Denies dyspnea Respiratory: Respiratory: Denies dyspnea Gastrointestinal: Gastrointestinal: Reports abdominal pain Genitourinary: Comments: new finding of carcinomatosis Musculoskeletal: Musculoskeletal: Denies neck pain Integumentary/Breasts: Skin/Breast: Denies dry skin Neurologic: Reports Normal hearing present, Denies headache(s) and Denies weakness Psychiatric: Psychiatric: Denies anxiety Endocrine: Endocrine: Denies change in body appearance Hematologic/Lymphatic: Hematologic/Lymphatic: Denies easy bleeding Allergic/Immunologic: Allergic/Immunologic: Denies urticaria PMFSH Past Medical History Medical History (Updated 12/11/23 @ 16:47 by Colby Casanova MD) Acute cholecystitis Bile leak Heavy menstrual bleeding Hyperlipidemia Obesity (BMI 30-39.9) Peritoneal carcinomatosis Surgical History Surgical History No pertinent past surgical history Family History Family History (Reviewed 12/09/23 @ 10:42 by Luigi Bright
[2023-12-11] MEDS: SIMVASTATIN 20 MG TABLET 80 MG PO (21:03)
[2023-12-11] MEDS: ERTAPENEM 1 GM/NS 50 ML 1 GM/50 ML BAG IVPB (21:03)
[2023-12-12] VITALS (11 sets, daily range): BP systolic 114–118; BP diastolic 70–82; PULSE 104–123; RESP 16–20; TEMP 36.2–37.1; O2SAT 94–99
[2023-12-12 01:58] LABS: CA-125 650 U/mL (<35)
[2023-12-12 05:18] LABS: Basophils Percent Auto 0.3 % (0.2-1.2); Eosinophils Absolute Auto 0.3 K/mm3 (0-0.3); Eosinophils Percent Auto 2.2 % (0-4.4); Hematocrit 39.6 % (37.0-47.0); Hemoglobin 12.5 g/dL (12.0-15.0); Immature Granulocyte Absolute 0.06 K/mm3 (0.00-0.031); Immature Granulocyte Percent A 0.5 % (0-0.5); Lymphocytes Absolute Auto 2.06 K/mm3 (0.9-3.2); Lymphocytes Percent Auto 17.7 % (18.3-44.2); Mean Corpuscular HGB Conc 31.6 g/dl (32-36); Mean Corpuscular Hemoglobin 28.9 pg (26-34); Mean Corpuscular Volume 91.5 fl (80-100); Mean Platelet Volume 7.9 fl (7.4-10.4); Monocytes Absolute Auto 0.8 K/mm3 (0.1-0.6); Monocytes Percent Auto 7.1 % (2.6-8.5); Neutrophils Absolute Auto 8.4 K/mm3 (1.3-6.7); Neutrophils Percent Auto 72.2 % (45.5-73.1); Platelet Count Result 589 k/mm3 (150-375); Red Blood Count 4.33 M/mm3 (4.2-5.4); Red Cell Distribution Width 12.8 % (11.5-14.5); White Blood Count 11.6 K/mm3 (4.5-10.0)
[2023-12-12 05:25] LABS: Anion Gap 3 mmol/L (4-12); Blood Urea Nitrogen 10 mg/dL (7-17); Calcium 7.6 mg/dL (8.4-10.2); Carbon Dioxide 24 mmol/L (22-30); Chloride 107 mmol/L (98-107); Estimated CRCL calculation 95 ml/min; Estimated Glomerular Filt Rate > 60; Glucose 111 mg/dL (65-110); Lipase 147 U/L (23-300); Potassium 3.6 mmol/L (3.4-5.0); Sodium 134 mmol/L (137-145)
[2023-12-12] MEDS: PANTOPRAZOLE SODIUM IV 40 MG VIAL IV PUSH (10:13)
[2023-12-12] MEDS: ENOXAPARIN 40 MG/0.4 ML SYRINGE SUB-Q (10:13)
--- NOTE | 2023-12-12 10:16 | PM.IMPN ---
Progress Note: A&P Assessment and Plan (1) Uterine mass: Code(s): N85.8 - Other specified noninflammatory disorders of uterus Status: Acute Assessment and Plan: - CT abdomen/pelvis:Large, bulky uterus with omental cake and moderate ascites. These findings are concerning for endometrial, uterine, or other tumor with metastases. Consider MRI of the pelvis and gynecology/gynecology-oncology referral. - Pelvic US: 9.8 cm intrauterine mass most likely representing a uterine fibroid. Moderate amount of ascites in the pelvis. - CA 125 pending - General surgery had 25 cc of ascitic fluid was aspirated and sent to pathology for cytology. - OBSTETRICS TEACHER following (2) Cholecystitis: Code(s): K81.9 - Cholecystitis, unspecified Status: Acute Assessment and Plan: - CT abdomen/pelvis: Hepatomegaly.Gallbladder hydrops with proximal wall thickening and a potential gallbladder neck stone, correlate for findings of right upper quadrant pain and with biliary labs. - s/p cholecystectomy with RACHEL placement with Dr. Maurice - advance diet as tolerated - continue ertapenem - GI consulted, HIDA scan showed no bile leak - start on PPI (3) Regular sinus tachycardia: Code(s): R00.0 - Tachycardia, unspecified Status: Acute Assessment and Plan: Continue telemetry monitoring sinus tach patient otherwise asymptomatic TSH/T4 elevated but could be related to hormonal disturbance and ovarian mass no history or exam findings consistent with hyperthyroid, may need outpatient re-evaluation give PO metoprolol 25 mg p.o. q.12 hours Plan Continue home medications: VTE Prophylaxis: Enoxaparin subQ DIET: Heart healthy diet Anticipated hospital stay: > 2 days Code Status: Full Subjective Date/time seen: 12/12/23 10:16 Interval history: Chief Complaint: ?abdominal pain Narrative: ?This is a 48-year-old female with past medical history significant for obesity, patient presents to the emergency room with complaints of 2 weeks of abdominal pain, bloating, distention, constipation, poor per orally intake. denies any fevers, rigors, chills,? No vomiting, no hematemesis, no melena, no bright red blood per rectum, no coffee-ground emesis.? Preliminary workup was significant for CT of abdomen and pelvis with a gallbladder hydrops and enlarged uterus. patient has been admitted for further evaluation management and treatment. Interval Hx: 12/08: Patient was seen in the PACU recovering. Unable to obtain any history due to sedation. Patient s/p cholecystectomy with RACHEL placement. Given the suggestion of pelvic malignancy on previous imaging, approximately 25 cc of ascitic fluid was aspirated and sent to pathology for cytology. Patient sitting up in bed, in no acute distress. Reports her pain is controlled at this time. OBSTETRICS TEACHER saw her this morning. Gen surgery following post kodi. RACHEL drain in place. Will continue AB therapy. Tolerating full liquids, plan to advance as tolerated. 12/09: Patient sitting up in bed, in no acute distress. Reports her pain is controlled at this time. OBSTETRICS TEACHER saw her this morning. Gen surgery following post kodi. RACHEL drain in place. Will continue AB therapy. Tolerating full liquids, plan to advance as tolerated. 12/10: Patient sitting up in bed, in no acute distress. Denies pain at this time. Denies GI upset prior or after her episode of vomiting this morning. Gen surgery following post cholecystectomy. RACHEL drain in place, will continue AB. Patient remains tachycardic, will give another dose of metoprolol PO and order ECHO given abnormal EKG. GI consulted and evaluating with HIDA to rule out bile leak. OBSTETRICS TEACHER following. I assumed care for pt 12/11: Patient resting in bed in no acute distress, RACHEL drain pain patent with serosanguineous drainage Denies any overnight events Review of Systems Review of Systems: Abdominal distention, bloating, poor appetite, poor per orally intake, constipation. All system
--- NOTE | 2023-12-12 13:29 | PM.GYNPNOP ---
TENDERIZER TENDER - A/P Assessment and plan (1) Peritoneal carcinomatosis: Code(s): C78.6 - Secondary malignant neoplasm of retroperitoneum and peritoneum Status: Acute Assessment and Plan: Offered her transfer to lead systems engineer oncology service if she would be interested if the other services agree. She was hesitant. Discussed her disease process with her and that unlikely the ascites will improve without treating the primary pelvic tumor and this is done by lead systems engineer oncology. She stated she would prefer to go home and recover and then pursue lead systems engineer oncology but if services agree transfer to lead systems engineer oncology would be best, she is willing to do that. Will attempt to contact surgery. If unable then will continue to follow as long as she is in house. (2) Pelvic neoplasm: Code(s): D49.89 - Neoplasm of unspecified behavior of other specified sites Status: Acute Postoperative Procedures: Procedures Operation Date: 12/09/23 10:30 Actual Procedure Side Surgeon p Laparoscopic Cholecystectomy, intraoperative cholangiogram, repair of common hepatic duct Not Applicable Ada Maurice MD Time Spent With Patient Time: Total time spent is greater than 50% in coordination of care (as documented) at patient's floor/unit and/or counseling patient: Time with patient: less than 15 minutes TENDERIZER TENDER- PN:Subj Post-Op Subjective Date/time seen: 12/12/23 13:29 Interval history: -resting in bed in no acute distress, RACHEL drain pain patent with serosanguineous drainage She states adequate pain control, tolerating soft diet, no leg pain. Review of Systems Constitutional: Constitutional: Reports no additional constitutional complaints Cardiovascular: Cardiovascular: Reports no additional cardiovascular complaints Respiratory: Respiratory: Reports no additional respiratory complaints Gastrointestinal: Gastrointestinal: Reports as per HPI Genitourinary: Genitourinary: Reports no additional female genitourinary complaints Psychiatric: Psychiatric: Reports no additional psychiatric complaints Exam Const: General: cooperative, comfortable and no acute distress Eyes: General: appearance normal, both eyes and all related structures Resp: Effort & Inspection: normal respiratory effort Cardio: Rate: regular rate GI: Other: RACHEL drain intact draining Neuro: General: oriented to person, oriented to place and oriented to time Extrem: General: no calf tenderness TENDERIZER TENDER - PN: Obj Data Vital Signs Vital Signs: Vital Signs - 24 hr 12/11/23 15:12 12/11/23 16:00 12/11/23 16:00 Temperature 98 F Pulse Rate 128 H 98 124 H Respiratory Rate 18 Blood Pressure 118/82 Pulse Oximetry 94 Oxygen Delivery 12/11/23 20:00 12/11/23 21:19 12/12/23 04:50 Temperature 98.2 F 97.1 F L Pulse Rate 109 H 109 H Respiratory Rate 16 16 Blood Pressure 111/62 117/76 Pulse Oximetry 94 94 Oxygen Delivery Room Air 12/11/23 20:00 12/12/23 00:00 12/12/23 04:00 Temperature Pulse Rate 112 H 105 H 104 H Respiratory Rate Blood Pressure Pulse Oximetry Oxygen Delivery 12/12/23 09:00 12/12/23 08:00 12/12/23 10:30 Temperature Pulse Rate 113 H Respiratory Rate Blood Pressure Pulse Oximetry 95 Oxygen Delivery Room Air Room Air 12/12/23 12:00 Temperature Pulse Rate 114 H Respiratory Rate Blood Pressure Pulse Oximetry Oxygen Delivery Intake/Output Intake/Output: Intake & Output 12/09/23 12/10/23 12/11/23 12/12/23 23:59 23:59 23:59 23:59 Intake Total 1800 1500 1728 100 Output Total 2034 214 2070 990 Balance -235 790 -414 -890 Meds/Results Medications: Active Medications Generic Name Dose Route Start Last Admin Trade Name Freq PRN Reason Stop Dose Admin Hydrocodone Bitart/Acetaminophen 1 tab 12/09/23 15:22 12/10/23 20:50 Hydrocodone/Acetaminophen (*Crx) 5-325 Mg Tablet PO 1 tab Q4H PRN Administration Pain Rated 4-6 Al Hydrox/Mg Hydrox/Simethicone 30 ml 11/30
--- NOTE | 2023-12-12 15:50 | WPDGIPROGNO ---
Progress Note: A&P Assessment and Plan (1) Peritoneal carcinomatosis: Code(s): C78.6 - Secondary malignant neoplasm of retroperitoneum and peritoneum Status: Acute Assessment and Plan: drain from RACHEL is mostly ascitic fluid, unfortunately she has peritoneal carcinomatosis and will need fitness assistant-onc treatment hida scan without any leak (this was corrected during surgery), I do not think that ERCP with bile duct stenting will decrease RACHEL drain (2) Endometrial mass: Code(s): N94.89 - Other specified conditions associated with female genital organs and menstrual cycle Status: Acute (3) Cholecystitis: Code(s): K81.9 - Cholecystitis, unspecified Status: Acute (4) Bile leak: Code(s): K83.9 - Disease of biliary tract, unspecified Status: Acute Assessment and Plan: treated by surgery no more bile leak by HIDA scan, normal bilirubin Subjective Date/time seen: 12/12/23 15:50 Interval history: same RACHEL drain pain patent with serosanguineous drainage she is comfortable Review of Systems Review of Systems: All systems reviewed & are unremarkable except as noted in HPI and below Exam Const: General: cooperative, comfortable and no acute distress HENMT: Face/Nose/Sinus: Normal nares present Eyes: General: appearance normal, both eyes and all related structures Neck: Neck: supple Resp: Effort & Inspection: normal respiratory effort Cardio: Rate: regular rate GI: GI Palp: Yes Soft to palpation and No Tenderness to palpation present (GI) Other: RACHEL drain intact draining Skin: General skin exam: normal color Neuro: General: oriented to person, oriented to place and oriented to time Extrem: General: no calf tenderness Objective Data Vital Signs Vital Signs: Vital Signs - 24 hr 12/11/23 16:00 12/11/23 16:00 12/11/23 20:00 Temperature 98 F Pulse Rate 98 124 H Respiratory Rate 18 Blood Pressure 118/82 Pulse Oximetry 94 Oxygen Delivery Room Air 12/11/23 21:19 12/12/23 04:50 12/11/23 20:00 Temperature 98.2 F 97.1 F L Pulse Rate 109 H 109 H 112 H Respiratory Rate 16 16 Blood Pressure 111/62 117/76 Pulse Oximetry 94 94 Oxygen Delivery 12/12/23 00:00 12/12/23 04:00 12/12/23 09:00 Temperature Pulse Rate 105 H 104 H Respiratory Rate Blood Pressure Pulse Oximetry 95 Oxygen Delivery Room Air 12/12/23 08:00 12/12/23 10:30 12/12/23 12:00 Temperature Pulse Rate 113 H 114 H Respiratory Rate Blood Pressure Pulse Oximetry Oxygen Delivery Room Air 12/12/23 13:49 Temperature 97.9 F Pulse Rate 122 H Respiratory Rate 18 Blood Pressure 118/82 Pulse Oximetry 96 Oxygen Delivery Intake/Output Intake/Output: Intake & Output 12/09/23 12/10/23 12/11/23 12/12/23 23:59 23:59 23:59 23:59 Intake Total 1800 1500 1728 100 Output Total 2035 710 2075 1380 Balance -235 575 -996 -0168 Meds/Results Medications: Active Medications Generic Name Dose Route Start Last Admin Trade Name Freq PRN Reason Stop Dose Admin Hydrocodone Bitart/Acetaminophen 1 tab 12/09/23 15:22 12/10/23 20:50 Hydrocodone/Acetaminophen (*Crx) 5-325 Mg Tablet PO 1 tab Q4H PRN Administration Pain Rated 4-6 Al Hydrox/Mg Hydrox/Simethicone 30 ml 12/11/23 01:18 12/11/23 01:28 Mag Hydrox/Al Hydrox/Simeth 30 Ml Udc PO 30 ml Q6H PRN Administration Indigestion Enoxaparin Sodium 40 mg 12/10/23 13:00 12/12/23 10:13 Enoxaparin 40 Mg/0.4 Ml Syringe SUB-Q 40 mg DAILY ALIZE Administration Ferrous Sulfate 325 mg 12/09/23 09:00 12/12/23 10:12 Ferrous Sulfate [address] PO 01/08/24 08:59 Not Given DAILY ALIZE Hydromorphone HCl 0.5 mg 12/08/23 21:23 Hydromorphone Hcl Inj (*Crx) 1 Mg/Ml Syr IV PUSH Q4H PRN Pain Rated 7-10 Non-Formulary ( 1 each 12/09/23 18:40 12/12/23 10:13 Norethindrone- PO 01/08/24 18:39 Not Given Ethinyl Estradiol 1 DAILY [facility] M
--- NOTE | 2023-12-12 17:10 | PM.PNGS ---
Progress Note: A&P Assessment and Plan (1) Cholecystitis: Code(s): K81.9 - Cholecystitis, unspecified Status: Acute Assessment and Plan: no leak on HIDA and labs normal, path reviewed (2) Carcinomatosis: Code(s): 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 malignant neoplasm, unspecified Status: Acute Assessment and Plan: path reviewed, will need to have urgent f/u c Operating Room Surgical Technician Oncology Subjective Subjective Date/Time Seen: 12/12/23 17:10 Interval history: feels good, hany diet Review of Systems Review of Systems: All systems reviewed & are unremarkable except as noted in HPI and below Exam Const: General: cooperative, comfortable and no acute distress Resp: Auscultation: clear to auscultation bilaterally Cardio: Rate: tachycardic Rhythm: regular rhythm GI: Inspection: normal to inspection, Abdominal wall edema, distended and incision GI Palp: No abdominal tenderness and Yes Soft to palpation Other: RACHEL c copious ascitic fluid Objective Data Vital Signs Vital Signs: Vital Signs - 24 hr 12/11/23 20:00 12/11/23 21:19 12/12/23 04:50 Temperature 36.8 C 36.2 C L Pulse Rate 109 H 109 H Respiratory Rate 16 16 Blood Pressure 111/62 117/76 Pulse Oximetry 94 94 Oxygen Delivery Room Air 12/11/23 20:00 12/12/23 00:00 12/12/23 04:00 Temperature Pulse Rate 112 H 105 H 104 H Respiratory Rate Blood Pressure Pulse Oximetry Oxygen Delivery 12/12/23 09:00 12/12/23 08:00 12/12/23 10:30 Temperature Pulse Rate 113 H Respiratory Rate Blood Pressure Pulse Oximetry 95 Oxygen Delivery Room Air Room Air 12/12/23 12:00 12/12/23 13:49 12/12/23 16:00 Temperature 36.6 C Pulse Rate 114 H 122 H 123 H Respiratory Rate 18 Blood Pressure 118/82 Pulse Oximetry 96 Oxygen Delivery Intake/Output Intake/Output: Intake & Output 12/09/23 12/10/23 12/11/23 12/12/23 23:59 23:59 23:59 23:59 Intake Total 1800 1500 1728 100 Output Total 2035 710 2075 1380 Balance -235 055 -010 -7489 Meds/Results Medications: Active Medications Generic Name Dose Route Start Last Admin Trade Name Freq PRN Reason Stop Dose Admin Hydrocodone Bitart/Acetaminophen 1 tab 12/09/23 15:22 12/10/23 20:50 Hydrocodone/Acetaminophen (*Crx) 5-325 Mg Tablet PO 1 tab Q4H PRN Administration Pain Rated 4-6 Al Hydrox/Mg Hydrox/Simethicone 30 ml 12/11/23 01:18 12/11/23 01:28 Mag Hydrox/Al Hydrox/Simeth 30 Ml Udc PO 30 ml Q6H PRN Administration Indigestion Enoxaparin Sodium 40 mg 12/10/23 13:00 12/12/23 10:13 Enoxaparin 40 Mg/0.4 Ml Syringe SUB-Q 40 mg DAILY ALIZE Administration Ferrous Sulfate 325 mg 12/09/23 09:00 12/12/23 10:12 Ferrous Sulfate [address] PO 01/08/24 08:59 Not Given DAILY ALIZE Hydromorphone HCl 0.5 mg 12/08/23 21:23 Hydromorphone Hcl Inj (*Crx) 1 Mg/Ml Syr IV PUSH Q4H PRN Pain Rated 7-10 Metoprolol Tartrate 25 mg 12/12/23 21:00 Metoprolol Tartrate 25 Mg Tablet PO Q12HR ALIZE Non-Formulary ( 1 each 12/09/23 18:40 12/12/23 10:13 Norethindrone- PO 01/08/24 18:39 Not Given Ethinyl Estradiol 1 DAILY ALIZE Mg-35 Mcg Oral Tablet) Ondansetron HCl 4 mg 12/08/23 21:23 Ondansetron Inj 4 Mg/2 Ml Vial IV PUSH Q4H PRN Nausea Pantoprazole Sodium 40 mg 12/11/23 11:15 12/12/23 10:13 Pantoprazole Sodium Iv 40 Mg Vial IV PUSH 40 mg QAM ALIZE Administration Perflutren Lipid Microsphere 0 ml 12/11/23 14:15 Perflutren Lipid Microspheres 1.5 Ml Vial Diluted To 10 Ml Total Volume IV PUSH 12/14/23 14:15 ONCE PRN adequate visualization Protocol Simvastatin 80 mg 12/09/23 21:00 12/11/23 21:03 Simvastatin 20 Mg Tablet PO 80 mg HS ALIZE Administration Radiology Results: ITS Impressions Pelvis Ultrasound 12/09/23 08:11 IMPRESSION: 1. 9.8 cm intrauterine mass most likely representing a uterine fibroid. 2. Moderate cheryl
[2023-12-12] MEDS: METOPROLOL TARTRATE 25 MG TABLET PO (18:36)
[2023-12-12] MEDS: SIMVASTATIN 20 MG TABLET 80 MG PO (20:16)
[2023-12-13] VITALS (12 sets, daily range): BP systolic 104–113; BP diastolic 67–75; PULSE 94–119; RESP 16–20; TEMP 36.4–37.3; O2SAT 95–97
[2023-12-13 05:48] LABS: Anion Gap 6 mmol/L (4-12); Blood Urea Nitrogen 10 mg/dL (7-17); Calcium 7.9 mg/dL (8.4-10.2); Carbon Dioxide 22 mmol/L (22-30); Chloride 107 mmol/L (98-107); Estimated CRCL calculation 109 ml/min; Estimated Glomerular Filt Rate > 60; Glucose 115 mg/dL (65-110); Potassium 3.7 mmol/L (3.4-5.0); Sodium 135 mmol/L (137-145)
[2023-12-13 05:52] LABS: Basophils Percent Auto 0.3 % (0.2-1.2); Eosinophils Absolute Auto 0.2 K/mm3 (0-0.3); Eosinophils Percent Auto 2.3 % (0-4.4); Hematocrit 40.6 % (37.0-47.0); Hemoglobin 12.9 g/dL (12.0-15.0); Immature Granulocyte Absolute 0.05 K/mm3 (0.00-0.031); Immature Granulocyte Percent A 0.5 % (0-0.5); Lymphocytes Absolute Auto 2.03 K/mm3 (0.9-3.2); Lymphocytes Percent Auto 19.5 % (18.3-44.2); Mean Corpuscular HGB Conc 31.8 g/dl (32-36); Mean Corpuscular Hemoglobin 28.7 pg (26-34); Mean Corpuscular Volume 90.2 fl (80-100); Mean Platelet Volume 8.3 fl (7.4-10.4); Monocytes Absolute Auto 0.7 K/mm3 (0.1-0.6); Monocytes Percent Auto 6.4 % (2.6-8.5); Neutrophils Absolute Auto 7.4 K/mm3 (1.3-6.7); Platelet Count Result 666 k/mm3 (150-375); Red Cell Distribution Width 12.8 % (11.5-14.5); White Blood Count 10.4 K/mm3 (4.5-10.0)
[2023-12-13] MEDS: ENOXAPARIN 40 MG/0.4 ML SYRINGE SUB-Q (09:48)
[2023-12-13] MEDS: METOPROLOL TARTRATE 25 MG TABLET PO ×2 (09:48→20:40)
[2023-12-13] MEDS: PANTOPRAZOLE SODIUM IV 40 MG VIAL IV PUSH (09:48)
--- NOTE | 2023-12-13 11:02 | WPDGIPROGNO ---
Progress Note: A&P Assessment and Plan (1) Peritoneal carcinomatosis: Code(s): C78.6 - Secondary malignant neoplasm of retroperitoneum and peritoneum Status: Acute Assessment and Plan: drain from RACHEL is ascitic fluid, unfortunately she has peritoneal carcinomatosis and will need inventory control coordinator-onc treatment hida scan without any leak (this was corrected during surgery), no plan for ERCP- I do not think that will decrease RACHEL drain need follow-up with onc-inventory control coordinator olga will follow as needed (2) Endometrial mass: Code(s): N94.89 - Other specified conditions associated with female genital organs and menstrual cycle Status: Acute Assessment and Plan: by gynecology, this is cause of peritoneal carcinomatosis/ascites (3) Cholecystitis: Code(s): K81.9 - Cholecystitis, unspecified Status: Acute (4) Bile leak: Code(s): K83.9 - Disease of biliary tract, unspecified Status: Acute Assessment and Plan: treated by surgery no more bile leak by HIDA scan, normal bilirubin no need of ercp Subjective Date/time seen: 12/13/23 11:02 Interval history: no changes, she is comfortable, similar output from RACHEL drain Review of Systems Review of Systems: All systems reviewed & are unremarkable except as noted in HPI and below Exam Const: General: cooperative, comfortable and no acute distress HENMT: Face/Nose/Sinus: Normal nares present Eyes: Sclera: sclerae normal Neck: Neck: supple Resp: Auscultation: clear to auscultation bilaterally Cardio: Rhythm: regular rhythm GI: Inspection: normal to inspection, Abdominal wall edema, distended and incision GI Palp: No abdominal tenderness and Yes Soft to palpation Other: RACHEL c copious ascitic fluid Skin: General skin exam: normal color Neuro: Speech: normal speech Motor exam (neuro): 5/5 motor strength present throughout Extrem: General: normal to inspection Psych: Affect: normal affect Objective Data Vital Signs Vital Signs: Vital Signs - 24 hr 12/12/23 12:00 12/12/23 13:49 12/12/23 16:00 Temperature 97.9 F Pulse Rate 114 H 122 H 123 H Respiratory Rate 18 Blood Pressure 118/82 Pulse Oximetry 96 Oxygen Delivery 12/12/23 18:36 12/12/23 19:15 12/12/23 19:46 Temperature 98.8 F Pulse Rate 118 H 122 H Respiratory Rate 20 Blood Pressure 114/70 Pulse Oximetry 99 Oxygen Delivery Room Air 12/13/23 03:31 12/12/23 20:00 12/13/23 00:00 Temperature 99.2 F Pulse Rate 100 113 H 94 Respiratory Rate 20 Blood Pressure 108/73 Pulse Oximetry 96 Oxygen Delivery 12/13/23 04:00 12/13/23 09:46 12/13/23 09:48 Temperature 98.2 F Pulse Rate 101 H 114 H 114 H Respiratory Rate 16 Blood Pressure 113/74 Pulse Oximetry 96 Oxygen Delivery Intake/Output Intake/Output: Intake & Output 12/10/23 12/11/23 12/12/23 12/13/23 23:59 23:59 23:59 23:59 Intake Total 1500 1728 940 490 Output Total 075 0298 2054 890 Balance 402 -480 -2688 -854 Meds/Results Medications: Active Medications Generic Name Dose Route Start Last Admin Trade Name Freq PRN Reason Stop Dose Admin Hydrocodone Bitart/Acetaminophen 1 tab 12/09/23 15:22 12/10/23 20:50 Hydrocodone/Acetaminophen (*Crx) 5-325 Mg Tablet PO 1 tab Q4H PRN Administration Pain Rated 4-6 Al Hydrox/Mg Hydrox/Simethicone 30 ml 12/11/23 01:18 12/11/23 01:28 Mag Hydrox/Al Hydrox/Simeth 30 Ml Udc PO 30 ml Q6H PRN Administration Indigestion Enoxaparin Sodium 40 mg 12/10/23 13:00 12/13/23 09:48 Enoxaparin 40 Mg/0.4 Ml Syringe SUB-Q 40 mg DAILY ALIZE Administration Ferrous Sulfate 325 mg 12/09/23 09:00 12/13/23 09:39 Ferrous Sulfate [address] PO 01/08/24 08:59 Not Given DAILY ALIZE Hydromorphone HCl 0.5 mg 12/08/23 21:23 Hydromorphone Hcl Inj (*Crx) 1 Mg/Ml Syr IV PUSH Q4H PRN Pain Rated 7-10 Metoprolol Tartrate 25 mg 12/12/23 21:00 12/13/23 09:48
--- NOTE | 2023-12-13 12:39 | PM.PNGS ---
Progress Note: A&P Assessment and Plan (1) Peritoneal carcinomatosis: Code(s): C78.6 - Secondary malignant neoplasm of retroperitoneum and peritoneum Status: Acute Assessment and Plan: will need urgent f/u c metal sorter oncology (2) Cholecystitis: Code(s): K81.9 - Cholecystitis, unspecified Status: Acute Assessment and Plan: doing well, cont drain for ascites, routine postop care, ok to dc home from surgical standpoint c f/u 2 wks Subjective Subjective Date/Time Seen: 12/13/23 12:39 Interval history: no acute issues, feels ok Review of Systems Review of Systems: All systems reviewed & are unremarkable except as noted in HPI and below Exam Const: General: cooperative, comfortable and no acute distress Resp: Auscultation: clear to auscultation bilaterally Cardio: Rate: tachycardic Rhythm: regular rhythm GI: Inspection: normal to inspection, distended and incision GI Palp: No abdominal tenderness and Yes Soft to palpation Other: RACHEL manoj mod ascitic drainage Objective Data Vital Signs Vital Signs: Vital Signs - 24 hr 12/12/23 13:49 12/12/23 16:00 12/12/23 18:36 Temperature 36.6 C Pulse Rate 122 H 123 H 118 H Respiratory Rate 18 Blood Pressure 118/82 Pulse Oximetry 96 Oxygen Delivery 12/12/23 19:15 12/12/23 19:46 12/13/23 03:31 Temperature 37.1 C 37.3 C Pulse Rate 122 H 100 Respiratory Rate 20 20 Blood Pressure 114/70 108/73 Pulse Oximetry 99 96 Oxygen Delivery Room Air 12/12/23 20:00 12/13/23 00:00 12/13/23 04:00 Temperature Pulse Rate 113 H 94 101 H Respiratory Rate Blood Pressure Pulse Oximetry Oxygen Delivery 12/13/23 09:46 12/13/23 09:48 12/13/23 08:00 Temperature 36.8 C Pulse Rate 114 H 114 H 106 H Respiratory Rate 16 Blood Pressure 113/74 Pulse Oximetry 96 Oxygen Delivery 12/13/23 09:50 Temperature Pulse Rate Respiratory Rate Blood Pressure Pulse Oximetry Oxygen Delivery Room Air Intake/Output Intake/Output: Intake & Output 12/10/23 12/11/23 12/12/23 12/13/23 23:59 23:59 23:59 23:59 Intake Total 1500 1728 940 490 Output Total 710 2075 2055 1350 Balance [phone] Meds/Results Medications: Active Medications Generic Name Dose Route Start Last Admin Trade Name Freq PRN Reason Stop Dose Admin Acetaminophen 650 mg 12/13/23 11:12 Acetaminophen 325 Mg Tablet PO Q6H PRN Mild Pain (1-3) or Fever Hydrocodone Bitart/Acetaminophen 1 tab 12/09/23 15:22 12/10/23 20:50 Hydrocodone/Acetaminophen (*Crx) 5-325 Mg Tablet PO 1 tab Q4H PRN Administration Pain Rated 4-6 Al Hydrox/Mg Hydrox/Simethicone 30 ml 12/11/23 01:18 12/11/23 01:28 Mag Hydrox/Al Hydrox/Simeth 30 Ml Udc PO 30 ml Q6H PRN Administration Indigestion Docusate Sodium 100 mg 12/13/23 11:12 Docusate Sodium 100 Mg Capsule PO Q12H PRN Constipation Enoxaparin Sodium 40 mg 12/10/23 13:00 12/13/23 09:48 Enoxaparin 40 Mg/0.4 Ml Syringe SUB-Q 40 mg DAILY ALIZE Administration Ferrous Sulfate 325 mg 12/09/23 09:00 12/13/23 09:39 Ferrous Sulfate [address] PO 01/08/24 08:59 Not Given DAILY ALIZE Hydromorphone HCl 0.5 mg 12/08/23 21:23 Hydromorphone Hcl Inj (*Crx) 1 Mg/Ml Syr IV PUSH Q4H PRN Pain Rated 7-10 Metoprolol Tartrate 25 mg 12/12/23 21:00 12/13/23 09:48 Metoprolol Tartrate 25 Mg Tablet PO 25 mg Q12HR ALIZE Administration Non-Formulary ( 1 each 12/09/23 18:40 12/13/23 09:39 Norethindrone- PO 01/08/24 18:39 Not Given Ethinyl Estradiol 1 DAILY ALIZE Mg-35 Mcg Oral Tablet) Ondansetron HCl 4 mg 12/08/23 21:23 Ondansetron Inj 4 Mg/2 Ml Vial IV PUSH Q4H PRN Nausea Pantoprazole Sodium 40 mg 12/11/23 11:15 12/13/23 09:48 Pantoprazole Sodium Iv 40 Mg Vial IV PUSH 40 mg QAM ALIZE Administration Perflutren Lipid Microsphere 0 ml 12/11/23 14:15 Perflutren
--- NOTE | 2023-12-13 12:59 | PM.IMPN ---
Progress Note: A&P Assessment and Plan (1) Uterine mass: Code(s): N85.8 - Other specified noninflammatory disorders of uterus Status: Acute Assessment and Plan: - CT abdomen/pelvis:Large, bulky uterus with omental cake and moderate ascites. These findings are concerning for endometrial, uterine, or other tumor with metastases. Consider MRI of the pelvis and gynecology/gynecology-oncology referral. - Pelvic US: 9.8 cm intrauterine mass most likely representing a uterine fibroid. Moderate amount of ascites in the pelvis. - CA 125 pending - General surgery had 25 cc of ascitic fluid was aspirated and sent to pathology for cytology. - TANK CAR MECHANIC is following, would like pt to follow-up lasting floorworker Oncology (2) Cholecystitis: Code(s): K81.9 - Cholecystitis, unspecified Status: Acute Assessment and Plan: - CT abdomen/pelvis: Hepatomegaly.Gallbladder hydrops with proximal wall thickening and a potential gallbladder neck stone, correlate for findings of right upper quadrant pain and with biliary labs. - s/p cholecystectomy with RAHCEL placement with Dr. Maurice - advance diet as tolerated - continue PPI (3) Regular sinus tachycardia: Code(s): R00.0 - Tachycardia, unspecified Status: Acute Assessment and Plan: Continue telemetry monitoring - check CTA, concern for PE due to recent dx of malignant neoplasm of retroperitoneum and peritoneum TSH/T4 elevated but could be related to hormonal disturbance and ovarian mass no history or exam findings consistent with hyperthyroid, may need outpatient re-evaluation continue PO metoprolol 25 mg p.o. q.12 hours Plan Continue home medications: VTE Prophylaxis: Enoxaparin subQ DIET: Heart healthy diet Anticipated hospital stay: > 2 days Code Status: Full Subjective Date/time seen: 12/13/23 12:59 Interval history: Interval history: Chief Complaint: ?abdominal pain Narrative: ?This is a 48-year-old female with past medical history significant for obesity, patient presents to the emergency room with complaints of 2 weeks of abdominal pain, bloating, distention, constipation, poor per orally intake. denies any fevers, rigors, chills,? No vomiting, no hematemesis, no melena, no bright red blood per rectum, no coffee-ground emesis.? Preliminary workup was significant for CT of abdomen and pelvis with a gallbladder hydrops and enlarged uterus. patient has been admitted for further evaluation management and treatment. Interval Hx: 12/08: Patient was seen in the PACU recovering. Unable to obtain any history due to sedation. Patient s/p cholecystectomy with RACHEL placement. Given the suggestion of pelvic malignancy on previous imaging, approximately 25 cc of ascitic fluid was aspirated and sent to pathology for cytology. Patient sitting up in bed, in no acute distress. Reports her pain is controlled at this time. TANK CAR MECHANIC saw her this morning. Gen surgery following post kodi. RACHEL drain in place. Will continue AB therapy. Tolerating full liquids, plan to advance as tolerated. ? 12/09: Patient sitting up in bed, in no acute distress. Reports her pain is controlled at this time. TANK CAR MECHANIC saw her this morning. Gen surgery following post kodi. RACHEL drain in place. Will continue AB therapy. Tolerating full liquids, plan to advance as tolerated. 12/10: Patient sitting up in bed, in no acute distress. Denies pain at this time. Denies GI upset prior or after her episode of vomiting this morning. Gen surgery following post cholecystectomy. RACHEL drain in place, will continue AB. Patient remains tachycardic, will give another dose of metoprolol PO and order ECHO given abnormal EKG. GI consulted and evaluating with HIDA to rule out bile leak. TANK CAR MECHANIC following. I assumed care for pt? 12/11:? Patient resting in bed in no acute distress, RACHEL drain pain patent with serosanguineous drainage Denies any overnight events 12/12: Pt seen this am, she is resting in bed in no acute distress, she denies any
[2023-12-13] MEDS: ACETAMINOPHEN 325 MG TABLET 650 MG PO (13:00)
[2023-12-13] MEDS: DOCUSATE SODIUM 100 MG CAPSULE PO (13:00)
--- NOTE | 2023-12-13 14:05 | PC.NURSE ---
pt taken off of unit for CT
--- NOTE | 2023-12-13 14:30 | PC.NURSE ---
pt returned to room from CT
[2023-12-13] MEDS: APIXABAN 5 MG TABLET 10 MG PO (20:40)
[2023-12-13] MEDS: SIMVASTATIN 20 MG TABLET 80 MG PO (20:40)
[2023-12-13] MEDS: HYDROcodone/acetaminophen (*CRX) 5-325 MG TABLET 1 TAB PO (20:47)
[2023-12-14] VITALS (11 sets, daily range): BP systolic 100–116; BP diastolic 67–75; PULSE 96–112; RESP 16–20; TEMP 36.4–37; O2SAT 97–98
[2023-12-14 05:11] LABS: Basophils Absolute Auto 0.1 K/mm3 (0.0-0.1); Basophils Percent Auto 0.8 % (0.2-1.2); Eosinophils Absolute Auto 0.3 K/mm3 (0-0.3); Eosinophils Percent Auto 2.8 % (0-4.4); Hematocrit 42.3 % (37.0-47.0); Hemoglobin 13.2 g/dL (12.0-15.0); Immature Granulocyte Absolute 0.07 K/mm3 (0.00-0.031); Immature Granulocyte Percent A 0.7 % (0-0.5); Lymphocytes Percent Auto 24.8 % (18.3-44.2); Mean Corpuscular HGB Conc 31.2 g/dl (32-36); Mean Corpuscular Hemoglobin 28.9 pg (26-34); Mean Corpuscular Volume 92.8 fl (80-100); Mean Platelet Volume 8.1 fl (7.4-10.4); Monocytes Absolute Auto 0.7 K/mm3 (0.1-0.6); Monocytes Percent Auto 7.3 % (2.6-8.5); Neutrophils Absolute Auto 6.4 K/mm3 (1.3-6.7); Neutrophils Percent Auto 63.6 % (45.5-73.1); Platelet Count Result 701 k/mm3 (150-375); Red Blood Count 4.56 M/mm3 (4.2-5.4); Red Cell Distribution Width 12.8 % (11.5-14.5); White Blood Count 10.1 K/mm3 (4.5-10.0)
[2023-12-14 05:24] LABS: Anion Gap 8 mmol/L (4-12); Blood Urea Nitrogen 13 mg/dL (7-17); Calcium 7.9 mg/dL (8.4-10.2); Carbon Dioxide 19 mmol/L (22-30); Chloride 108 mmol/L (98-107); Estimated CRCL calculation 95 ml/min; Estimated Glomerular Filt Rate > 60; Glucose 107 mg/dL (65-110); Potassium 3.8 mmol/L (3.4-5.0); Sodium 135 mmol/L (137-145)
[2023-12-14] MEDS: HYDROcodone/acetaminophen (*CRX) 5-325 MG TABLET 1 TAB PO (05:25)
[2023-12-14] MEDS: PANTOPRAZOLE SODIUM IV 40 MG VIAL IV PUSH (08:52)
[2023-12-14] MEDS: APIXABAN 5 MG TABLET 10 MG PO ×2 (08:52→20:31)
[2023-12-14] MEDS: METOPROLOL TARTRATE 25 MG TABLET PO ×2 (08:52→20:31)
--- NOTE | 2023-12-14 11:59 | PM.IMPN ---
Progress Note: A&P Assessment and Plan (1) Uterine mass: Code(s): N85.8 - Other specified noninflammatory disorders of uterus Status: Acute Assessment and Plan: -consult to Oncology, patient unsure embedded developer oncology follow-up process, appreciate recommendation and plan - CA 125 pending General surgery had 25 cc of ascitic fluid was aspirated and sent to pathology for cytology. (2) Cholecystitis: Code(s): K81.9 - Cholecystitis, unspecified Status: Acute Assessment and Plan: - CT abdomen/pelvis: Hepatomegaly.Gallbladder hydrops with proximal wall thickening and a potential gallbladder neck stone, correlate for findings of right upper quadrant pain and with biliary labs. - s/p cholecystectomy with RACHEL placement with Dr. Maurice - advance diet as tolerated - continue PPI (3) Regular sinus tachycardia: Code(s): R00.0 - Tachycardia, unspecified Status: Acute Assessment and Plan: Continue telemetry monitoring - check CTA, concern for PE due to recent dx of malignant neoplasm of retroperitoneum and peritoneum TSH/T4 elevated but could be related to hormonal disturbance and ovarian mass no history or exam findings consistent with hyperthyroid, may need outpatient re-evaluation continue PO metoprolol 25 mg p.o. q.12 hours (4) Carcinomatosis: Code(s): 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 malignant neoplasm, unspecified Status: Acute (5) Peritoneal carcinomatosis: Code(s): C78.6 - Secondary malignant neoplasm of retroperitoneum and peritoneum Status: Acute (6) Acute pulmonary embolism: Code(s): I26.99 - Other pulmonary embolism without acute cor pulmonale Status: Acute Assessment and Plan: -continue telemetry monitoring -continue Eliquis 10 mg b.i.d. for 1 week then 5 mg p.o. b.i.d. for 3 months -venous bilateral lower extremity ultrasound negative Plan Patient should be able to discharge home in the a.m., care professionals has confirmed patient is eligible for Eliquis, pharmacy has been changed, awaiting recommendation and plan for outpatient embedded developer Oncology follow-up, Oncology has been consulted. Continue home medications: Discontinue hormone use VTE Prophylaxis: Enoxaparin subQ DIET: Heart healthy diet Anticipated hospital stay: > 2 days Code Status: Electric Meter Installer Spent With Patient Time with patient: 25 - 35 minutes Subjective Date/time seen: 04/14/24 11:59 Interval history: pt seen this am, she denies any overnight events at this time. RACHEL drain patent, rn reports mild continued drainage around dressing. Pt denies any pain at this time. Review of Systems Review of Systems: Abdominal distention, bloating, poor appetite, poor per orally intake, constipation. All systems reviewed & are unremarkable except as noted in HPI and below Exam Narrative: General: well nourished, well-developed female in no acute distress HEENT: Normocephalic. Atraumatic. Chest: Lungs are clear to auscultation bilaterally. No wheezes or crackles. CV: RRR. S1-S2. Abd: Abdomen soft, mild tenderness to RUQ on palpation. BS present. Ext: No clubbing, cyanosis, or edema. Neuro: A&O x3. No focal deficits. Skin: Warm and dry. No rashes noted. RACHEL drain patent PSYCH: Normal mood and affect. Objective Data Vital Signs Vital Signs: Vital Signs - 24 hr 12/13/23 12:00 12/13/23 13:43 12/13/23 16:00 Temperature 97.6 F Pulse Rate 119 H 98 101 H Respiratory Rate 18 Blood Pressure 110/75 Pulse Oximetry 95 Oxygen Delivery 12/13/23 19:31 12/13/23 20:40 12/13/23 20:00 Temperature 98.4 F Pulse Rate 105 H 100 106 H Respiratory Rate 20 Blood Pressure 104/67 Pulse Oximetry 97 Oxygen Delivery 12/14/23 00:00 12/14/23 04:23 12/14/23 04:00 Temperature 98.6 F Pulse Rate 97 98 96 Respiratory Rate 20 Blood Pressure 105/72 Pulse Oximetry 97 Oxygen Delivery 12/14/23 08:51 12/14/23 08:52 12/14/23 08:0
--- NOTE | 2023-12-14 17:30 | PC.NURSE ---
Attempted to call Dr. Maurice's exchange and after several minutes of holding, left a spot in line by pressing pound for a call back. Never received a call back from exchange
[2023-12-14] MEDS: SIMVASTATIN 20 MG TABLET 80 MG PO (20:32)
[2023-12-15] VITALS (9 sets, daily range): BP systolic 112–119; BP diastolic 74–75; PULSE 104–128; RESP 16–18; TEMP 36.4–36.8; O2SAT 95–100
[2023-12-15 05:11] LABS: Basophils Absolute Auto 0.1 K/mm3 (0.0-0.1); Basophils Percent Auto 0.6 % (0.2-1.2); Eosinophils Absolute Auto 0.3 K/mm3 (0-0.3); Eosinophils Percent Auto 2.5 % (0-4.4); Hematocrit 42.7 % (37.0-47.0); Hemoglobin 13.6 g/dL (12.0-15.0); Immature Granulocyte Absolute 0.09 K/mm3 (0.00-0.031); Immature Granulocyte Percent A 0.7 % (0-0.5); Lymphocytes Absolute Auto 2.62 K/mm3 (0.9-3.2); Lymphocytes Percent Auto 21.5 % (18.3-44.2); Mean Corpuscular HGB Conc 31.9 g/dl (32-36); Mean Platelet Volume 8.2 fl (7.4-10.4); Monocytes Absolute Auto 0.8 K/mm3 (0.1-0.6); Monocytes Percent Auto 6.4 % (2.6-8.5); Neutrophils Absolute Auto 8.3 K/mm3 (1.3-6.7); Neutrophils Percent Auto 68.3 % (45.5-73.1); Platelet Count Result 738 k/mm3 (150-375); Red Blood Count 4.69 M/mm3 (4.2-5.4); Red Cell Distribution Width 12.9 % (11.5-14.5); White Blood Count 12.2 K/mm3 (4.5-10.0)
[2023-12-15] MEDS: APIXABAN 5 MG TABLET 10 MG PO (09:10)
[2023-12-15] MEDS: METOPROLOL TARTRATE 25 MG TABLET PO (09:10)
[2023-12-15] MEDS: PANTOPRAZOLE SODIUM IV 40 MG VIAL IV PUSH (09:15)
[2023-12-15 09:23] LABS: CRP 3.1 mg/dL (<1.0)
[2023-12-15 09:36] LABS: Erythrocyte Sedimentation Rate 11 mm/hr (0-20)
--- NOTE | 2023-12-15 09:42 | PDONCCN ---
HPI - Date of Consult Date/Time: 12/15/23 12:55 <Jossue Skelton - 12/15/23 12:59> 12/15/23 09:42 <Azul Burns - 12/15/23 09:44> Requesting Physician: Marco A Campbell MD <Jossue Skelton - 12/15/23 12:59> Marco A Campbell MD <Azul Burns - 12/15/23 09:44> Primary Care Provider: PHYSICIAN NOT ON STAFF <Jossue Skelton - 12/15/23 12:59> PHYSICIAN NOT ON STAFF <Azul Burns - 12/15/23 09:44> - Consult Narrative Reason for consult: Intrauterine Mass <Azul Burns - 12/15/23 12:09> Narrative: Nena Ayala is a 48 year old female <Jossue Skelton - 12/15/23 12:59> Nena Ayala is a 48 year old female with a past medical history of HLD, IRENE, HTN, who was admitted for 2 weeks of abdominal pain, constipation, and stomach upset. She was out of town a week prior to the start of abdominal pain and thought she was constipated. She used OTC laxatives with some relief. The abdominal pain then persisted. Pelvic US showed 9.8 cm intrauterine mass most likely representing a uterine fibroid and moderate amount of ascites in the pelvis. Cholecystectomy was also completed and sent for pathology which shows metastatic cancer of unknown origin. Ca 125 was elevated to 653. She has also been diagnosed with a PE after surgery and has been put on Eliquis. She follows with Dr. Gomez at [facility] for elevated platelets. She states she had a work up done prior for elevated platelets but nothing was ever found. She was not taking an aspirin. She is taking iron for IRENE d/t heavy menstrual periods and is also now on control pills. She was adopted and does not know about familial history. She has never had a cancer. She has no kids. Labs today are notable for WBC 12.2, Hgb 13.6, Hct 42.7, Plt 738,000. <Azul Burns 12/15/23 09:57> Review of Systems - Review of Systems All systems reviewed & are unremarkable except as noted in HPI and bel <Azul Burns 12/15/23 09:54> - Neurologic Reports hearing normal, Denies headache(s), Denies focal weakness, Denies sensory deficit, Denies weakness <GrantAzul 12/15/23 09:44> [facility] Medical History: Medical History (Last Updated 12/11/23 @ 16:47 by Colby Casanova MD) Acute cholecystitis Bile leak Heavy menstrual bleeding Hyperlipidemia Obesity (BMI 30-39.9) Peritoneal carcinomatosis <Jossue Skelton - 12/15/23 12:59> Medical History (Last Updated 12/11/23 @ 16:47 by Colby Casanova MD) Acute cholecystitis Bile leak Heavy menstrual bleeding Hyperlipidemia Obesity (BMI 30-39.9) Peritoneal carcinomatosis <GrantAzul 12/15/23 09:44> Surgical History: Surgical History (Last Reviewed 12/09/23 @ 10:42 by Luigi Roa MD) No pertinent past surgical history <Jossue Skelton - 12/15/23 12:59> Surgical History (Last Reviewed 12/09/23 @ 10:42 by Luigi Roa MD) No pertinent past surgical history <GrantAzul 12/15/23 09:44> Family History: Family History (Last Reviewed 12/09/23 @ 10:42 by Luigi Roa MD) Other Unknown family medical history <Jossue Skelton - 12/15/23 12:59> Family History (Last Reviewed 12/09/23 @ 10:42 by Luigi Roa MD) Other Unknown family medical history <Azul Burns 12/15/23 09:44> - Social History Social History: Social History (Last Reviewed 12/09/23 @ 10:42 by Luigi Roa MD) Alcohol Use: Alcohol intake: never Substance Use: Substance use: never Others: Spiritual care concerns: No Smoking Status: Smoking status: Never smoker Social Determinants of Health: Do You Feel Safe in your Home?: Yes Has the Lack of Transportation Kept You From Medical Appointments or From Getting Medications?: No Within the Past 12 Months, Were You Worried Whether Your Food Would Run Out
[2023-12-15] MEDS: polyethylene glycoL 3350 17 GM POWD.PACK PO (09:47)
--- NOTE | 2023-12-15 14:21 | PM.GYNPNOP ---
TAX COMMISSIONER - A/P Assessment and plan (1) Peritoneal carcinomatosis: Code(s): C78.6 - Secondary malignant neoplasm of retroperitoneum and peritoneum Status: Acute Plan - Pathology report discussed w/ patient; adenocarcinoma of unknown primary - will continue leaking malignant ascitic fluid until she is able to start chemo - My office made her an appt with Geospatial Program Management Officer Onc at [facility] on 12/23/23 @ 0920am-- provider and address provided (printed out) and given to pt - will sign off at this point as she will continue care with dredge engineer onc Postoperative Procedures: Procedures Operation Date: 12/09/23 10:30 Actual Procedure Side Surgeon p Laparoscopic Cholecystectomy, intraoperative cholangiogram, repair of common hepatic duct Not Applicable Ada Maurice MD Time Spent With Patient Time: Total time spent is greater than 50% in coordination of care (as documented) at patient's floor/unit and/or counseling patient: Time with patient: less than 15 minutes TAX COMMISSIONER- PN:Subj Post-Op Subjective Date/time seen: 12/15/23 14:21 Interval history: pt seen this am, she denies any overnight events at this time. RACHEL drain patent, continues to have drainage around insertion site/dressing. Pt denies any pain at this time. Unsure if she will be discharged home today or not. Review of Systems Constitutional: Constitutional: Denies chills and Denies fever(s) Cardiovascular: Cardiovascular: Denies chest pain Respiratory: Respiratory: Denies dyspnea Gastrointestinal: Comments: RACHEL drain having leakage around insertion site Exam Const: General: cooperative, comfortable and no acute distress TAX COMMISSIONER - PN: Obj Data Vital Signs Vital Signs: Vital Signs - 24 hr 12/14/23 16:00 12/14/23 20:20 12/14/23 20:00 Temperature 97.6 F Pulse Rate 104 H 105 H 105 H Respiratory Rate 17 Blood Pressure 116/75 Pulse Oximetry 98 12/15/23 00:00 12/15/23 04:00 12/15/23 05:09 Temperature 98.3 F Pulse Rate 105 H 105 H 108 H Respiratory Rate 17 Blood Pressure 112/74 Pulse Oximetry 95 12/15/23 09:09 12/15/23 09:10 12/15/23 13:46 Temperature 97.6 F Pulse Rate 128 H 128 H 112 H Respiratory Rate 16 18 Blood Pressure 112/75 119/74 Pulse Oximetry 100 97 Intake/Output Intake/Output: Intake & Output 12/12/23 12/13/23 12/14/23 12/15/23 23:59 23:59 23:59 23:59 Intake Total 940 1470 1846 730 Output Total 3782 213 2980 390 [phone] -[phone] Meds/Results Medications: Active Medications Generic Name Dose Route Start Last Admin Trade Name Freq PRN Reason Stop Dose Admin Acetaminophen 650 mg 12/13/23 11:12 12/13/23 13:00 Acetaminophen 325 Mg Tablet PO 650 mg Q6H PRN Administration Mild Pain (1-3) or Fever Hydrocodone Bitart/Acetaminophen 1 tab 12/09/23 15:22 12/14/23 05:25 Hydrocodone/Acetaminophen (*Crx) 5-325 Mg Tablet PO 1 tab Q4H PRN Administration Pain Rated 4-6 Al Hydrox/Mg Hydrox/Simethicone 30 ml 12/11/23 01:18 12/11/23 01:28 Mag Hydrox/Al Hydrox/Simeth 30 Ml Udc PO 30 ml Q6H PRN Administration Indigestion Apixaban 10 mg 12/13/23 21:00 12/15/23 09:10 Apixaban 5 Mg Tablet PO 12/20/23 20:59 10 mg Q12HR ALIZE Administration Apixaban 5 mg 12/20/23 21:00 Apixaban 5 Mg Tablet PO 03/19/24 20:59 Q12HR ALIZE Docusate Sodium 100 mg 12/13/23 11:12 12/13/23 13:00 Docusate Sodium 100 Mg Capsule PO 100 mg Q12H PRN Administration Constipation Ferrous Sulfate 325 mg 12/09/23 09:00 12/15/23 09:11 Ferrous Sulfate [address] PO 01/08/24 08:59 Not Given DAILY ALIZE Hydromorphone HCl 0.5 mg 12/08/23 21:23 Hydromorphone Hcl Inj (*Crx) 1 Mg/Ml Syr IV PUSH Q4H PRN Pain Rated 7-10 Metoprolol Tartrate 25 mg 12/12/23 21:00 12/15/23 09:10 Metoprolol Tartrate 25 Mg Tablet PO 25 mg Q12HR ALIZE Administration Ondansetron HCl 4 mg 12/08/23 21:23 Ondansetron Inj 4 Mg/2 Ml Vial IV PUSH Q
--- NOTE | 2023-12-15 15:24 | PM.PNGS ---
Progress Note: A&P Assessment and Plan (1) Peritoneal carcinomatosis: Code(s): C78.6 - Secondary malignant neoplasm of retroperitoneum and peritoneum Status: Acute Assessment and Plan: Will need urgent f/u c breaker layer oncology. Patient has a scheduled for next Friday. (2) Cholecystitis: Code(s): K81.9 - Cholecystitis, unspecified Status: Acute Assessment and Plan: Okay to discharge from a surgical standpoint. Follow-up in [address] Maurice. Continue low-fat diet. Continue RACHEL drain on discharge given malignant ascites. F/u with Podopediatrician Onc. Plan I have discussed the patient's case and plan of care with Dr. Maurice. Subjective Subjective Date/Time Seen: 12/15/23 15:24 Patient reports: no new complaints, tolerating a regular diet, flatus and bowel movement Interval history: Patient seen today. She was educated on RACHEL drain care. No specific complaints at this time. Tolerating a diet and activity. Patient has an appointment with Gyne Onc next Friday scheduled. Exam Const: General: cooperative and no acute distress Orientation/consciousness: patient oriented x3 GI: Inspection: Abdominal wall edema and non-distended GI Palp: Yes Soft to palpation, No Tenderness to palpation present (GI) and No Guarding due to palpation present (GI) Auscultation: normal bowel sounds Other: RACHEL c mod ascitic drainage Objective Data Vital Signs Vital Signs: Vital Signs - 24 hr 12/14/23 16:00 12/14/23 20:20 12/14/23 20:00 Temperature 97.6 F Pulse Rate 104 H 105 H 105 H Respiratory Rate 17 Blood Pressure 116/75 Pulse Oximetry 98 12/15/23 00:00 12/15/23 04:00 12/15/23 05:09 Temperature 98.3 F Pulse Rate 105 H 105 H 108 H Respiratory Rate 17 Blood Pressure 112/74 Pulse Oximetry 95 12/15/23 09:09 12/15/23 09:10 12/15/23 13:46 Temperature 97.6 F Pulse Rate 128 H 128 H 112 H Respiratory Rate 16 18 Blood Pressure 112/75 119/74 Pulse Oximetry 100 97 Intake/Output Intake/Output: Intake & Output 12/12/23 12/13/23 12/14/23 12/15/23 23:59 23:59 23:59 23:59 Intake Total 940 1470 1846 730 Output Total 7055 3717 5320 390 [facility] -[phone] 340 Meds/Results Medications: Active Medications Generic Name Dose Route Start Last Admin Trade Name Freq PRN Reason Stop Dose Admin Acetaminophen 650 mg 12/13/23 11:12 12/13/23 13:00 Acetaminophen 325 Mg Tablet PO 650 mg Q6H PRN Administration Mild Pain (1-3) or Fever Hydrocodone Bitart/Acetaminophen 1 tab 12/09/23 15:22 12/14/23 05:25 Hydrocodone/Acetaminophen (*Crx) 5-325 Mg Tablet PO 1 tab Q4H PRN Administration Pain Rated 4-6 Al Hydrox/Mg Hydrox/Simethicone 30 ml 12/11/23 01:18 12/11/23 01:28 Mag Hydrox/Al Hydrox/Simeth 30 Ml Udc PO 30 ml Q6H PRN Administration Indigestion Apixaban 10 mg 12/13/23 21:00 12/15/23 09:10 Apixaban 5 Mg Tablet PO 12/20/23 20:59 10 mg Q12HR ALIZE Administration Apixaban 5 mg 12/20/23 21:00 Apixaban 5 Mg Tablet PO 03/19/24 20:59 Q12HR ALIZE Docusate Sodium 100 mg 12/13/23 11:12 12/13/23 13:00 Docusate Sodium 100 Mg Capsule PO 100 mg Q12H PRN Administration Constipation Ferrous Sulfate 325 mg 12/09/23 09:00 12/15/23 09:11 Ferrous Sulfate [address] PO 01/08/24 08:59 Not Given DAILY ALIZE Hydromorphone HCl 0.5 mg 12/08/23 21:23 Hydromorphone Hcl Inj (*Crx) 1 Mg/Ml Syr IV PUSH Q4H PRN Pain Rated 7-10 Metoprolol Tartrate 25 mg 12/12/23 21:00 12/15/23 09:10 Metoprolol Tartrate 25 Mg Tablet PO 25 mg Q12HR ALIZE Administration Ondansetron HCl 4 mg 12/08/23 21:23 Ondansetron Inj 4 Mg/2 Ml Vial IV PUSH Q4H PRN Nausea Pantoprazole Sodium 40 mg 12/11/23 11:15 12/15/23 09:15 Pantoprazole Sodium Iv 40 Mg Vial IV PUSH 40 mg QAM ALIZE Administration Polyethylene Glycol 17 gm 12/15/23 09:23 12/15/23 09:47 Polyethylene Glycol 3350 17
--- NOTE | 2023-12-15 15:53 | PM.DS ---
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 (2) Cholecystitis: Code(s): K81.9 - Cholecystitis, unspecified Status: Acute Assessment and Plan: - CT abdomen/pelvis: Hepatomegaly.Gallbladder hydrops with proximal wall thickening and a potential gallbladder neck stone, correlate for findings of right upper quadrant pain and with biliary labs. - s/p cholecystectomy with RACHEL placement with Dr. 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 for 1 week then 5 mg p.o. b.i.d. for 3 months venous bilateral lower extremity ultrasound negative DS: Summary Hospital Course Hospital Course: Patient is a 48 year old female with PMH of presented to the hospital for bloating, abdominal distention, and epigastric pain. On admission, CT scan is concerning for hydropic gall bladder and enlarged bulky uterus with omental caking and moderate amount of ascites. GI consulted, general surgery consulted, PB/LAMINATION INSPECTOR consulted. Patient had a kodi, with a RACHEL drain in place that will stay at d/c until f/u in 2 weeks. Patient has been sinus tachycardic throughout hospitalization. PE found on CT, and patient will be d/c on Eliquis. Status at Discharge Functional status at discharge: independent ambulation Overall status at discharge: patient is not back to baseline Exam Narrative: General: well nourished, well-developed female in no acute distress HEENT: Normocephalic. Atraumatic. Chest: Lungs are clear to auscultation bilaterally. No wheezes or crackles. CV: RR, tachycardic. S1-S2. Abd: Abdomen soft, mild tenderness to RUQ on palpation. BS present. Ext: No clubbing, cyanosis, or edema. Neuro: A&O x3. No focal deficits. Skin: Warm and dry. No rashes noted. RACHEL drain patent PSYCH: Normal mood and affect. DS: Data Data Completed and Pending Completed studies during hospitalization: Pending at discharge 12/09/23 15:07 Surgical [PTH] Routine Labs on day of discharge: Labs from last 24 hours 12/15/23 12/15/23 04:54 04:50 WBC 12.2 H RBC 4.69 Hgb 13.6 Hct 42.7 MCV 91.0 MCH 29.0 MCHC 31.9 L RDW 12.9 Plt Count 738 H MPV 8.2 Immature Gran % (Auto) 0.7 H Neut % (Auto) 68.3 Lymph % (Auto) 21.5 Bibb % (Auto) 6.4 Eos % (Auto) 2.5 Baso % (Auto) 0.6 Lymph # (Auto) 2.62 Bibb # (Auto) 0.8 H Eos # (Auto) 0.3 Baso # (Auto) 0.1 Abs Immat Gran (auto) 0.09 H Absolute Neuts (auto) 8.3 H Absolute Nucleated RBC 0.000 Nucleated RBC % 0.0 ESR 11 C-Reactive Protein 3.1 H JAK2 [id number] Specimen Pending JAK2 V617F Gene Pending JAK2 V617F Exon Pending JAK2 V617F Mut Indic Pending JAK2 V617F Mut
[2023-12-16 15:51] LABS: T3 Free 2.0 pg/mL
[2023-12-20 17:09] LABS: Block/Specimen ID NG; CALR Exon 9 Mutation NOT DETECTED (NOT DETECTED); CSF3R Exon 14/17 Mutation NOT DETECTED (NOT DETECTED); Clinical Indication NG; JAK2 Exon 12 Mutation NOT DETECTED (NOT DETECTED); JAK2 V617F Mutation NOT DETECTED (NOT DETECTED); MPL Exon 10 Mutation NOT DETECTED (NOT DETECTED); Specimen Source BLOOD
--- NOTE | 2023-12-22 14:39 | IVDEFINITY ---
Prior to administration of IV Definity the patient was educated on the risks and benefits of the imaging enhancing agent including potential adverse side effects. The patient verbalized understanding. Allergies were verified. No exclusion criteria were identified and at least one of the following inclusion criteria were met: 1) physician request, 2) patient technically difficult to image (per the [place] [employer] guidelines of two or more segments not discernable within the apical view), or 3) questionable left ventricular function. ?
== END 2023-12-15 17:25 | disposition home or self-care (01) | DRG 417 ==
LOC: ANHED 21:32 → ANH2MED 12-09 08:58
PROVIDERS: Anesthesiology; Nurse Practitioner; Nurse Practitioner Family; Student in an Organized Health Care Education/Training Program; Surgery; Admitting Provider Internal Medicine; Emergency Provider Emergency Medicine; Visit Provider Internal Medicine
PROC: 0FT44ZZ Resection of Gallbladder, Percutaneous Endoscopic Approach (ICD-10-PCS; CPT 47562; principal; 2023-12-09 10:30)
DX: K80.00 Calculus of gallbladder with acute cholecystitis without obstruction (principal); I26.99 Other pulmonary embolism without acute cor pulmonale; C78.6 Secondary malignant neoplasm of retroperitoneum and peritoneum; K82.1 Hydrops of gallbladder; R18.8 Other ascites; C76.3 Malignant neoplasm of pelvis; E66.9 Obesity, unspecified; E78.5 Hyperlipidemia, unspecified; N85.2 Hypertrophy of uterus; R00.0 Tachycardia, unspecified; Z88.0 Allergy status to penicillin; Z68.38 Body mass index [BMI] 38.0-38.9, adult
CPT/HCPCS: 36415; 71275; 74177; 74178; 74300; 76830; 76856; 78226; 80048; 80053; 80076; 81001; 81025; 81219; 81270; 81279; 81339; 81479; 83690; 84436; 84443; 84480; 84702; 85025; 85027; 85652; 86140; 86304; 86703; 86803; 87340; 88108; 88304; 88305; 88342; 93005; 93970; 96360; 96365; 99285; A9270; A9537; C8929; C9113; G0378; G0432; J0330; J1100; J1335; J1650; J2250; J2405; J2704; J3010; J7030; J7120; Q9957; Q9966; Q9967